=== PATIENT | female | born 1965 | race Caucasian/White ===

== ENCOUNTER 2017-03-26 16:38 | Inpatient (IN) | payer MEDICAID ==
[~2017-03-26] VITALS: Ht 142.2 cm; Wt 76.7 kg
[2017-03-26 17:42] VITALS: BP 144/65
--- NOTE | 2017-03-26 18:57 | NUR ---
Patient to bed 05.
--- NOTE | 2017-03-26 19:10 | NUR ---
PATIENT PRESENTS TO ED WITH DAUGHTER . PT ROMANIAN SPEAKING, TRANSLATED BY DAUGHTER, PT STATES LEFT LEG SWOLLEN AND PAIN FOR ONE DAY, HX OF CARDIAC PROBLEM, AND PLATELET LOW. NKA, DENIES N/V/D; SKIN IS PINK/WARM/DRY; AAOX4, LUNGS CLEAR BL; HR EVEN AND REGULAR; DENIES ANY FEVER, CP, SOB, OR COUGH AT THIS TIME; PATIENT STATES PAIN OF 9/10 AT THIS TIME; VSS; PATIENT POSITIONED FOR COMFORT; HOB ELEVATED; BEDRAILS UP X2; BED DOWN. ER MD MADE AWARE OF PT STATUS.
[2017-03-26] MEDS ORDERED: IBUPROFEN 800 MG TAB PO ONE (19:20)
[2017-03-26] MEDS ORDERED: ENOXAPARIN 80 MG/0.8 ML SYR SUBQ ONE (20:30)
[2017-03-26] MEDS ORDERED: NACL 0.9% 1,000 ML IV ONE (20:35)
[2017-03-26 20:45] LABS: ANION GAP 13.8 (8-16); CALCIUM 9.2 mg/dL (8.5-10.1); CARBON DIOXIDE 27.3 mmol/L (21-32); CREATININE 0.7 mg/dL (0.6-1.3); POTASSIUM 4.1 mmol/L (3.5-5.1)
[2017-03-26 20:47] LABS: INR 1.1 (0.8-1.2); PARTIAL THROMBOPLASTIN TIME 21.1 secs (22-35.6); PROTHROMBIN TIME 10.7 secs (10.8-13.4)
[2017-03-26 20:51] LABS: ALBUMIN 4.1 g/dL (3.4-5.0); TOTAL BILIRUBIN 0.3 mg/dL (0.0-1.0); TOTAL PROTEIN, SERUM 8.8 g/dL (6.4-8.2)
[2017-03-26 20:53] LABS: BASOPHILS % (AUTO) 0.2 % (0.0-2.0); EOSINOPHILS # (AUTO) 0.1 K/uL (0-0.4); HEMATOCRIT 26.6 % (36-48); LYMPHOCYTES # (AUTO) 1.1 K/uL (2.5-16.5); MEAN CORPUSCULAR HEMOGLOBIN 17 pg (27-31); MEAN CORPUSCULAR HGB CONC 29 g/dL (33-37); MEAN CORPUSCULAR VOLUME 58 fL (80-94); MONOCYTES # (AUTO) 0.7 K/uL (0.8-1.0); MONOCYTES % (AUTO) 5.4 % (1.7-9.3); NEUTROPHILS # (AUTO) 10.7 K/uL (1.8-7.7); NEUTROPHILS % (AUTO) 84.4 % (42.2-75.2); PLATELET COUNT (AUTO) 358 K/uL (140-450); RED BLOOD CELL COUNT(AUTO) 4.59 MIL/uL (4.20-5.40); RED CELL DISTRIBUTION WIDTH 18.4 % (11.6-13.7); WHITE BLOOD COUNT (AUTO) 12.6 K/uL (4.8-10.8)
[2017-03-26 20:54] LABS: HEMOGLOBIN 7.8 g/dL (12.0-16.0)
--- NOTE | 2017-03-26 21:46 | NUR ---
REPORT GIVEN TO TELE NURSE, WILL TRANSFER PATIENT TO ROOM 106A.
[2017-03-26] MEDS ORDERED: LOVENOX 1MG/KG Q12H SUBQ SCH (22:00)
[2017-03-26] MEDS ORDERED: LORazepam 2 MG/ML VIAL IVP PRN (22:00)
[2017-03-26] MEDS ORDERED: HYDROcodone/APAP 5/325 MG 1 TAB TAB PO PRN (22:00)
[2017-03-26] MEDS ORDERED: ONDANSETRON 4 MG/2 ML VIAL IVP PRN (22:00)
[2017-03-26] MEDS ORDERED: ACETAMINOPHEN 325 MG TAB PO PRN (22:00)
--- NOTE | 2017-03-26 22:06 | NUR ---
Patient will be admitted to care of dr edwards. Admited to TELE. Will go to room 106 a. Belongings list completed.
[2017-03-26 22:15] VITALS: BP 118/72
--- NOTE | 2017-03-26 22:15 | NUR ---
Admitted from ER, with chief complaint of LLE PAIN/SWELLING, DX LLE DVT. PT'S DAUGHTER AT BEDSIDE. 51 y/o, Female, Cooperative, AOX4, TONGAN SPEAKING, BUT ABLE TO UNDERSTAND AND SPEAK LITTLE BOLIVIAN. DAUGHTER AT BEDSIDE TO HELP COMMUNICATE. PT ABLE TO VERBALIZE NEEDS. PT RESTING IN BED, DENIES CHEST PAIN, SOB OR S/S OF ACUTE DISTRESS. RECOVERY MANAGER IN PLACE. LEFT LEG SWELLING AND SLIGHT REDNESS ON CALF NOTED. PT C/O DULL, CONSTANT PAIN, DENIES PAIN MED AT THIS TIME. IV ACCESS ASYMPTOMATIC, PATENT AND INTACT. REMAINING IVF FROM ER INFUSING WELL. DISCUSSED AND REVIEWED PLAN OF CARE WITH PT. PT AND PT'S DAUGHTER VERBALIZED UNDERSTANDING. oriented to call light, bed, phone,television, bathroom, smoking policy, visiting hours, procedures, ID bracelet on. Belongings list checked. SAFETY MEASURES ENSURED. CALL LIGHT WITHIN REACH. WILL CONTINUE TO MONITOR.
[2017-03-26 22:39] LABS: CREATINE KINASE MB 0.3 ng/mL (0-3.6)
[2017-03-27] VITALS: BP 105/66
--- NOTE | 2017-03-27 00:15 | NUR ---
PT RESTING COMFORTABLY. PT DENIES CHEST PAIN, SOB OR S/S OF ACUTE DISTRESS. CONDITION STABLE. ALL NEEDS MET. SAFETY MEASURES ENSURED. CALL LIGHT WITHIN REACH. WILL CONTINUE TO MONITOR.
[2017-03-27 04:00] VITALS: BP 102/63
--- NOTE | 2017-03-27 04:15 | NUR ---
PT SLEEPING. NO S/S OF ACUTE DISTRESS. CONDITION STABLE. ALL NEEDS MET. SAFETY MEASURES ENSURED. CALL LIGHT WITHIN REACH. WILL CONTINUE TO MONITOR.
[2017-03-27 06:34] LABS: BASOPHILS # (AUTO) 0.1 K/uL (0.00-0.22); EOSINOPHILS # (AUTO) 0.2 K/uL (0-0.4); LYMPHOCYTES # (AUTO) 1.2 K/uL (2.5-16.5); PLATELET COUNT (AUTO) 284 K/uL (140-450)
[2017-03-27 06:36] LABS: EOSINOPHILS % (AUTO) 2.7 % (0.0-4.0); HEMATOCRIT 22.2 % (36-48); LYMPHOCYTES % (AUTO) 17.5 % (20.5-51.1); MEAN CORPUSCULAR HEMOGLOBIN 17 pg (27-31); MEAN CORPUSCULAR HGB CONC 29 g/dL (33-37); MEAN CORPUSCULAR VOLUME 59 fL (80-94); MONOCYTES # (AUTO) 0.5 K/uL (0.8-1.0); MONOCYTES % (AUTO) 7.1 % (1.7-9.3); NEUTROPHILS # (AUTO) 5.1 K/uL (1.8-7.7); NEUTROPHILS % (AUTO) 70.7 % (42.2-75.2); RED BLOOD CELL COUNT(AUTO) 3.79 MIL/uL (4.20-5.40); RED CELL DISTRIBUTION WIDTH 18.4 % (11.6-13.7); WHITE BLOOD COUNT (AUTO) 7.1 K/uL (4.8-10.8)
[2017-03-27 06:37] LABS: ANION GAP 12.5 (8-16); CALCIUM 8.1 mg/dL (8.5-10.1); CARBON DIOXIDE 25.8 mmol/L (21-32); CREATININE 0.6 mg/dL (0.6-1.3); POTASSIUM 4.3 mmol/L (3.5-5.1)
[2017-03-27 06:43] LABS: MAGNESIUM 2.1 mg/dL (1.8-2.4); PHOSPHORUS 3.8 mg/dL (2.5-4.9)
[2017-03-27 06:56] LABS: CREATINE KINASE MB 0.2 ng/mL (0-3.6)
[2017-03-27 06:57] LABS: HEMOGLOBIN 6.4 g/dL (12.0-16.0)
--- NOTE | 2017-03-27 07:23 | NUR ---
CALLED Umair ALEGRIA MADE AWARE OF HGB 6.4 AND HCT 22.2; ORDERS RECEIVED FOR PRBC 2 UNITS STAT. ORDERS PUT IN, ENDORSED TO AM NURSE.
[2017-03-27] MEDS ORDERED: LOVENOX 1MG/KG Q12H SUBQ SCH (07:25)
--- NOTE | 2017-03-27 07:25 | NUR ---
RECEIVED PATIENT REPORT AT BEDSIDE. PATIENT'S DAUGHTER PRESENT IN THE ROOM. PATIENT AWAKE, ALERT AND ORIENTED. NO S/S OF DISTRESS NOTED. SWELLING NOTED TO THE LEFT LEG. PATIENT DENIES PAIN AT THIS TIME. PATIENT STATES SHE ONLY FEELS PAIN WHEN WALKING. NO SOB. PATIENT ON ROOM AIR. PATIENT ON TELE MONITORING. BED LOWERED WITH CALL LIGHT WITHIN REACH. WILL CONTINUE TO MONITOR
--- NOTE | 2017-03-27 07:25 | NUR ---
ENDORSED PLAN OF CARE TO AM NURSE.
[2017-03-27 07:26] LABS: ANISOCYTOSIS 1+; HYPOCHROMASIA 1+; POIKILOCYTOSIS 1+
[2017-03-27 07:27] LABS: OVALOCYTES 1+
--- NOTE | 2017-03-27 07:58 | NUR ---
SPOKE WITH DR Umair COLLINS AND INFORMED HIM THAT PATIENT REFUSES TO HAVE BLOOD TRANSFUSION AND OPTS TO HAVE IRON SUPPLEMENTS. ORDERS TO ADMINISTER IV IRON
[2017-03-27 08:00] VITALS: BP 117/67
[2017-03-27] MEDS: FERRIC GLUCONATE 125 MG in NACL 0.9% 100 ML IV SCH (09:37)
[2017-03-27] MEDS: ENOXAPARIN 80 MG/0.8 ML SYR SUBQ SCH ×2 (09:46→22:29)
[2017-03-27 09:58] LABS: INR 1.1 (0.8-1.2)
--- NOTE | 2017-03-27 10:09 | NUR ---
PATIENT HAS BEEN SCREENED AND CATEGORIZED LOW NUTRITION RISK. PATIENT WILL BE SEEN WITHIN 7 DAYS OF ADMISSION. 04/02/[address]
[2017-03-27 12:00] VITALS: BP 119/72
[2017-03-27 12:59] LABS: CREATINE KINASE MB 0.1 ng/mL (0-3.6)
--- NOTE | 2017-03-27 14:28 | NUR ---
PATIENT SEEN BY DR Andi COLLINS
[2017-03-27 16:00] VITALS: BP 131/77
[2017-03-27] MEDS ORDERED: WARFARIN 5 MG, WARFARIN 2.5 MG PO SCH ×2 (17:00)
--- NOTE | 2017-03-27 18:31 | NUR ---
PATIENT RESTING IN BED COMFORTABLY. NO S/S OF DISTRESS NOTED
--- NOTE | 2017-03-27 19:25 | NUR ---
PATIENT REPORT GIVEN AT BEDSIDE. PATIENT ENDORSED IN STABLE CONDITION
--- NOTE | 2017-03-27 19:30 | NUR ---
RECEIVED PT FROM IVAN CHAPPELL PT NEPALI SPEAKER AAOX4 ON TELEMETRY ST LEFT LE EDEMATOUS AND DX DVT, HL PATENT ON RT AC PT USING BSC VOIDING WELL INITIAL ASSESSMENT DONE
[2017-03-27 20:00] VITALS: BP 121/66
--- NOTE | 2017-03-27 22:00 | NUR ---
PT RESTING ON BED DENIES ANY DISCOMFORT AT THIS TIME ON TELEMETRY ST
[2017-03-28] VITALS: BP 122/66
--- NOTE | 2017-03-28 01:57 | NUR ---
PT SLEEPING WELL NOT DISTRESS NOTED AT THIS TIME ON TELEMETRY ST
[2017-03-28 04:00] VITALS: BP 113/62
--- NOTE | 2017-03-28 04:57 | NUR ---
SPONGE BATH GIVEN , LINEN CHANGED , PT HAS HER MENSTRUAL PERIOD PAD CHANGED DENIES ANY PAIN
[2017-03-28 06:28] LABS: INR 1.1 (0.8-1.2); PROTHROMBIN TIME 10.7 secs (10.8-13.4)
[2017-03-28 06:34] LABS: ANION GAP 11.9 (8-16); CALCIUM 8.1 mg/dL (8.5-10.1); CREATININE 0.6 mg/dL (0.6-1.3); EOSINOPHILS # (AUTO) 0.2 K/uL (0-0.4); MEAN CORPUSCULAR HEMOGLOBIN 17 pg (27-31); POTASSIUM 3.9 mmol/L (3.5-5.1)
[2017-03-28 06:38] LABS: BASOPHILS # (AUTO) 0.2 K/uL (0.00-0.22); BASOPHILS % (AUTO) 2.4 % (0.0-2.0); EOSINOPHILS % (AUTO) 2.4 % (0.0-4.0); HEMATOCRIT 24.1 % (36-48); LYMPHOCYTES # (AUTO) 1.4 K/uL (2.5-16.5); LYMPHOCYTES % (AUTO) 16.2 % (20.5-51.1); MEAN CORPUSCULAR HGB CONC 29 g/dL (33-37); MEAN CORPUSCULAR VOLUME 59 fL (80-94); MONOCYTES # (AUTO) 0.5 K/uL (0.8-1.0); MONOCYTES % (AUTO) 6.1 % (1.7-9.3); NEUTROPHILS # (AUTO) 6.3 K/uL (1.8-7.7); NEUTROPHILS % (AUTO) 72.9 % (42.2-75.2); PLATELET COUNT (AUTO) 314 K/uL (140-450); RED BLOOD CELL COUNT(AUTO) 4.06 MIL/uL (4.20-5.40); RED CELL DISTRIBUTION WIDTH 18.5 % (11.6-13.7)
--- NOTE | 2017-03-28 06:38 | NUR ---
PT HAS HER MENSTRUAL PERIODS, VOIDING WELL USING BSC DENIES ANY PAIN ON TELEMETRY SR
--- NOTE | 2017-03-28 07:00 | NUR ---
RECEIVED REPORT FROM PM SHIFT RN AT BEDSIDE. PT IS AWAKE AND ALERT, ABLE TO MAKE NEEDS KNOWN. BREATHING EVEN & UNLABORED. PT DENIED ANY CHEST PAIN, SOB, OR DISCOMFORT AT THIS TIME. RIGHT AC #20G IV ACCESS INTACT AND PATENT. RIGHT LOWER LEG SWELLING NOTED. BED IN LOW POSITION. SAFETY MEASURES MAINTAINED. CALL LIGHT WITHIN REACH. WILL CONTINUE TO MONITOR. Addendum: 03/28/17 at 1035 by Tolu Hill RN LEFT LOWER LEG SWELLING NOTED, NOT RIGHT LOWER LEG. CHARTED BY MISTAKE.
[2017-03-28 07:46] LABS: ANISOCYTOSIS 1+; HEMOGLOBIN 6.9 g/dL (12.0-16.0); HYPOCHROMASIA 1+; POIKILOCYTOSIS 1+; WHITE BLOOD COUNT (AUTO) 8.6 K/uL (4.8-10.8)
[2017-03-28 07:47] LABS: OVALOCYTES 1+
[2017-03-28 08:00] VITALS: BP 112/68
[2017-03-28] MEDS: FERRIC GLUCONATE 125 MG in NACL 0.9% 100 ML IV SCH (09:08)
[2017-03-28] MEDS: ENOXAPARIN 80 MG/0.8 ML SYR SUBQ SCH ×2 (09:11→22:16)
--- NOTE | 2017-03-28 09:15 | NUR ---
SCHEDULED MED GIVEN ORDERED AND TOLERATED WELL BY PT. CALL LIGHT WITHIN REACH. WILL CONTINUE TO MONITOR.
[2017-03-28] MEDS: FERROUS SULFATE 325 MG TABEC PO SCH ×2 (11:44→16:56)
[2017-03-28 12:00] VITALS: BP 112/66
--- NOTE | 2017-03-28 12:00 | NUR ---
ROUNDED ON PT. V/S STABLE. AFEBRILE. NO ACUTE DISTRESS NOTED. DAUGHTER PRESENTED AT BEDSIDE. WILL CONTINUE TO MONITOR.
--- NOTE | 2017-03-28 15:30 | NUR ---
ANSWERED CALL LIGHT. ANOTHER DAUGHTER CAME TO VISIT PT AT THIS TIME. UPDATED TO DAUGHTER WITH PT'S CURRENT CLINICAL STATUS AND ALL QUESTIONS ANSWERED. WILL CONTINUE TO MONITOR.
[2017-03-28 16:00] VITALS: BP 118/66
[2017-03-28] MEDS ORDERED: WARFARIN 5 MG, WARFARIN 2.5 MG PO SCH ×2 (17:00)
--- NOTE | 2017-03-28 19:20 | NUR ---
ENDORSED REPORT TO A OPERATOR RN FOR CONTINUITY OF CARE.
--- NOTE | 2017-03-28 19:25 | NUR ---
RECEIVED FROM AM RN IN BED SITTING UP POSITION IN BED . SEQUENTIALS IN PLACE AND ABLE TO BVERBALIZE NEEDS WELL. NO SOB. DENIES PAIN AT THIS TIME. PT. CARE PLANS FOR THE NIGHT DISCUSSED WITH HER AND ENCOURAGED TO USE CALL LIGHT FOR ANY HELP SHE MAY NEED. IVF SITE INTACT AND NO INFILTRATION TO RAC#20. DX. OF DVT TO LEFT LEG. TELEMETRY MONITORING.
[2017-03-28 20:00] VITALS: BP 110/64
--- NOTE | 2017-03-28 22:11 | NUR ---
SLEEPING AT THIS TIME. TELEMETRY MONITORING. CALL LIGHT WITH IN REACH.
--- NOTE | 2017-03-28 23:06 | NUR ---
SLEEPING. NO COMPLAINTS DONE. DAUGHTER LEFT FOR HOME. CALL LIGHT WITH IN REACH.
[2017-03-29 00:11] VITALS: BP 104/63
--- NOTE | 2017-03-29 03:15 | NUR ---
PT. NEEDS ATTENDED TO. WET WITH URINE. RURAL ELECTRIFICATION ENGINEER CHANGED PT. KEPT DRY AND COMFORTABLE. ABLE TO VERBALIZE SIMPLE NEEDS. ENCOURAGED TO GO BACK TO SLEEP. ON TELEMETRY MONITORING.
[2017-03-29 05:31] VITALS: BP 110/64
[2017-03-29 06:24] LABS: ANION GAP 10.7 (8-16); CALCIUM 8.3 mg/dL (8.5-10.1); CARBON DIOXIDE 27.2 mmol/L (21-32); CREATININE 0.6 mg/dL (0.6-1.3); EOSINOPHILS # (AUTO) 0.3 K/uL (0-0.4); HEMATOCRIT 24.2 % (36-48); MEAN CORPUSCULAR HEMOGLOBIN 18 pg (27-31); MONOCYTES # (AUTO) 0.6 K/uL (0.8-1.0); POTASSIUM 3.9 mmol/L (3.5-5.1)
[2017-03-29 06:26] LABS: BASOPHILS # (AUTO) 0.2 K/uL (0.00-0.22); BASOPHILS % (AUTO) 1.7 % (0.0-2.0); EOSINOPHILS % (AUTO) 3.3 % (0.0-4.0); LYMPHOCYTES # (AUTO) 2.2 K/uL (2.5-16.5); MEAN CORPUSCULAR HGB CONC 29 g/dL (33-37); MEAN CORPUSCULAR VOLUME 61 fL (80-94); MONOCYTES % (AUTO) 6.2 % (1.7-9.3); NEUTROPHILS # (AUTO) 6.5 K/uL (1.8-7.7); NEUTROPHILS % (AUTO) 66.8 % (42.2-75.2); PLATELET COUNT (AUTO) 346 K/uL (140-450); RED BLOOD CELL COUNT(AUTO) 4.01 MIL/uL (4.20-5.40); RED CELL DISTRIBUTION WIDTH 18.8 % (11.6-13.7)
[2017-03-29 06:32] LABS: INR 1.2 (0.8-1.2); PROTHROMBIN TIME 12.4 secs (10.8-13.4)
--- NOTE | 2017-03-29 06:45 | NUR ---
SLEPT WELL THIS SHIFT. NO COMPLAINTS OF PAIN DONE. TURNS SELF. CALL LIGHT WITH IN REACH AT ALL TIMES. VERBALIZES SIMPLE NEEDS WELL IN MALDIVIAN. SEQUENTIALS IN PLACE.
[2017-03-29 07:10] LABS: WHITE BLOOD COUNT (AUTO) 9.8 K/uL (4.8-10.8)
[2017-03-29 07:12] LABS: ANISOCYTOSIS 1+; HYPOCHROMASIA 1+; POIKILOCYTOSIS 1+
--- NOTE | 2017-03-29 07:35 | NUR ---
ENDORSED TO THE NEXT RN F OR CONTINUITY OF CARE. AWAKE AND ALERT. VERBALIZES WELL.
--- NOTE | 2017-03-29 07:36 | NUR ---
RECEIVED BEDSIDE REPORT FROM LABOR CONTRACTOR NURSE. PT AWAKE AND ALERT, NO SIGNS OF ACUTE DISTRESS. BOWEL SOUNDS ACTIVE IN ALL 4 QUADRANTS, PATIENT CONTINENT TO BOWEL AND BLADDER. AMBULATORY WITH BRP. SKIN INTACT. PATIENT DENIES PAIN AT THIS TIME. IV PATENT AND ASYMPTOMATIC. RE-ORIENTED PATIENT TO HOSPITAL AND TO UNIT, PT VERBALIZED UNDERSTANDING. BED IN LOW POSITION WITH BILATERAL HALF SIDE RAILS UP, CALL LIGHT WITHIN REACH, SAFETY CHECKS IN PLACE.
[2017-03-29 08:00] VITALS: BP 111/57
[2017-03-29] MEDS: FERROUS SULFATE 325 MG TABEC PO SCH ×3 (08:29→16:20)
[2017-03-29] MEDS: ENOXAPARIN 80 MG/0.8 ML SYR SUBQ SCH ×2 (08:30→20:24)
[2017-03-29] MEDS: FERRIC GLUCONATE 125 MG in NACL 0.9% 100 ML IV SCH (08:31)
--- NOTE | 2017-03-29 09:30 | NUR ---
PT RESTING COMFORTABLY IN BED, NO COMPLAINT OF PAIN AT THIS TIME. BED IN LOW POSITION WITH BILATERAL HALF SIDE RAILS UP, CALL LIGHT WITHIN REACH, SAFETY CHECKS IN PLACE. WILL CONTINUE TO MONITOR.
[2017-03-29 12:00] VITALS: BP 101/62
--- NOTE | 2017-03-29 12:15 | NUR ---
PT SITTING UPRIGHT IN BED, NO COMPLAINT OF PAIN AT THIS TIME. VITALS STABLE, SAFETY CHECKS IN PLACE. WILL CONTINUE TO MONITOR.
--- NOTE | 2017-03-29 14:00 | NUR ---
PT RESTING COMFORTABLY IN BED, NO SIGNS OF ACUTE DISTRESS. BED IN LOW POSITION WITH BILATERAL HALF SIDE RAILS UP, CALL LIGHT WITHIN REACH. WILL CONTINUE TO MONITOR.
--- NOTE | 2017-03-29 14:50 | NUR ---
PATIENT COMPLAINT OF PAIN AT IV SITE. NO REDNESS OR COLD AREAS AROUND SITE HOWEVER MILD SWELLING. DISCONTINUED IV AND STARTED NEW IV IN LEFT FOREARM, 22 G. IV PATENT AND ASYMPTOMATIC. WILL CONTINUE TO MONITOR.
[2017-03-29 16:00] VITALS: BP 117/67
[2017-03-29] MEDS: WARFARIN 5 MG TAB PO SCH (16:18)
--- NOTE | 2017-03-29 16:30 | NUR ---
PATIENT WANTED TO USE THE RESTROOM INSTEAD OF THE BEDSIDE COMMODE. PT UNABLE TO MAKE IT TO THE BATHROOM DUE TO PAIN FROM WALKING, USED WHEELCHAIR INSTEAD. WILL CONTINUE TO MONITOR.
--- NOTE | 2017-03-29 18:20 | NUR ---
PT RESTING COMFORTABLY IN BED, NO SIGNS OF ACUTE DISTRESS. SAFETY CHECKS IN PLACE, WILL CONTINUE TO MONITOR.
[2017-03-29 19:30] VITALS: BP 113/64
--- NOTE | 2017-03-29 19:30 | NUR ---
RECEIVED FROM AM RN IN BED AWAKE AND ALERT. LEBANESE SPEAKING . CALL LIGHT WITH IN REACH. TELEMETRY [id number].
--- NOTE | 2017-03-29 19:30 | NUR ---
PT AWAKE AND ALERT, NO SIGNS OF ACUTE DISTRESS. ENDORSED TO REMEDIOS RN, FOR CONTINUITY OF CARE.
--- NOTE | 2017-03-29 22:30 | NUR ---
STILL AWAKE AT THIS TIME AND ON THE PHONE TALKING T O FAMILY MEMBERS. NO SOB. DENIES ANY PAIN AT THIS TIME. TELEMETRY MONITORING . ABLE TO USE CALL LIGHT FOR HELP. AFEBRILE.
[2017-03-30 00:31] VITALS: BP 114/68
--- NOTE | 2017-03-30 00:37 | NUR ---
PT. A/O X 4. VERBALIZES WELL IN LAO.SLEEPING AT THIS TIME. NO RESTLESSNESS NOTED. CALL LIGHT AT BEDSIDE WITH IN REACH. USES BEDSIDE COMMODE FOR PERSONAL HYGIENE.
[2017-03-30 04:17] VITALS: BP 110/66
--- NOTE | 2017-03-30 04:30 | NUR ---
SLEEPING WELL THIS SHIFT. NO COMPLAINTS DONE. AFEBRILE. VERBALIZES NEEDS WELL. TELEMETRY MONITORING.
[2017-03-30 06:25] LABS: ANION GAP 10.4 (8-16); CALCIUM 8.3 mg/dL (8.5-10.1); CARBON DIOXIDE 27.8 mmol/L (21-32); CREATININE 0.6 mg/dL (0.6-1.3); POTASSIUM 4.2 mmol/L (3.5-5.1)
[2017-03-30 06:29] LABS: INR 1.7 (0.8-1.2); PROTHROMBIN TIME 16.7 secs (10.8-13.4)
[2017-03-30 06:44] LABS: BASOPHILS # (AUTO) 0.1 K/uL (0.00-0.22); BASOPHILS % (AUTO) 0.9 % (0.0-2.0); EOSINOPHILS # (AUTO) 0.4 K/uL (0-0.4); EOSINOPHILS % (AUTO) 3.2 % (0.0-4.0); HEMATOCRIT 24.8 % (36-48); HEMOGLOBIN 7.2 g/dL (12.0-16.0); LYMPHOCYTES # (AUTO) 1.6 K/uL (2.5-16.5); LYMPHOCYTES % (AUTO) 12.6 % (20.5-51.1); MEAN CORPUSCULAR HEMOGLOBIN 18 pg (27-31); MEAN CORPUSCULAR HGB CONC 29 g/dL (33-37); MEAN CORPUSCULAR VOLUME 62 fL (80-94); MONOCYTES # (AUTO) 0.7 K/uL (0.8-1.0); MONOCYTES % (AUTO) 5.5 % (1.7-9.3); NEUTROPHILS % (AUTO) 77.8 % (42.2-75.2); PLATELET COUNT (AUTO) 359 K/uL (140-450); RED CELL DISTRIBUTION WIDTH 19.3 % (11.6-13.7)
[2017-03-30 07:06] LABS: WHITE BLOOD COUNT (AUTO) 12.8 K/uL (4.8-10.8)
[2017-03-30 07:07] LABS: ANISOCYTOSIS 1+; HYPOCHROMASIA 1+; OVALOCYTES 1+; POIKILOCYTOSIS 1+
--- NOTE | 2017-03-30 07:15 | NUR ---
ENDORSED TO THE NEXT RN FOR CONTINUITY OF CARE. SLEEPING. WAKES UP EASILY WHEN CALLED BY NAME. NO COMPLAINTS DONE THIS SHIFT. USES CALL LIGHT FOR HELP. VERBALIZES SIMPLE NEEDS WELL IN PERSIAN.
--- NOTE | 2017-03-30 07:16 | NUR ---
PT AWAKE AND ALERT, NO SIGNS OF ACUTE DISTRESS. BOWEL SOUNDS ACTIVE IN ALL 4 QUADRANTS, BOWEL AND BLADDER CONTINENCE. SKIN INTACT. AMBULATORY WITH ASSIST WITH BEDSIDE COMMODE. IV PATENT AND ASYMPTOMATIC. PATIENT HAS PAIN 3/10 DOESN'T WANT PAIN MEDICATION AT THIS TIME. RE-ORIENTED TO HOSPITAL AND TO UNIT, PT VERBALIZED UNDERSTANDING. BED IN LOW POSITION WITH BILATERAL HALF SIDE RAILS UP, CALL LIGHT WITHIN REACH. WILL CONTINUE TO MONITOR.
[2017-03-30 08:00] VITALS: BP 103/59
[2017-03-30] MEDS: FERRIC GLUCONATE 125 MG in NACL 0.9% 100 ML IV SCH (09:24)
[2017-03-30] MEDS: FERROUS SULFATE 325 MG TABEC PO SCH ×3 (09:25→16:37)
[2017-03-30] MEDS: ENOXAPARIN 80 MG/0.8 ML SYR SUBQ SCH ×2 (09:26→21:58)
--- NOTE | 2017-03-30 09:45 | NUR ---
PATIENT COMPLAINING OF PAIN 7/10 IN UPPER RIGHT EXTREMITY. AREA MILD SWELLING FROM PREVIOUS IV. PATIENT DOES NOT WANT PAIN MEDICATION AT THIS TIME. RE-POSITIONED PATIENT. WILL CONTINUE TO MONITOR.
[2017-03-30 12:00] VITALS: BP 106/65
--- NOTE | 2017-03-30 12:13 | NUR ---
PATIENT SITTING UPRIGHT EATING LUNCH, NO SIGNS OF ACUTE DISTRESS. BED IN LOW POSITION WITH BILATERAL HALF SIDE RAILS UP, CALL LIGHT WITHIN REACH. WILL CONTINUE TO MONITOR.
--- NOTE | 2017-03-30 13:10 | NUR ---
RECEIVED NEW ORDERS FROM DR COLLINS FOR LABS AND CULTURES, NOTED, WILL CARRY OUT.
--- NOTE | 2017-03-30 15:55 | NUR ---
PATIENT COMPLAINING OF PAIN 7/10 IN UPPER RIGHT EXTREMITY AND LOWER LEFT EXTREMITY. DOESN'T WANT PAIN MEDICATION AT THIS TIME. REPOSITIONED AND APPLIED ICE PACK. WILL CONTINUE TO MONITOR.
[2017-03-30 16:00] VITALS: BP 112/70
[2017-03-30] MEDS: WARFARIN 5 MG TAB PO SCH (16:38)
--- NOTE | 2017-03-30 17:20 | NUR ---
PATIENT TELE MONITOR NOT WORKING, REPLACED TELE MONITOR AND CHECKED VITAL SIGNS. BLOOD PRESSURE 107/74, HEART RATE 117, OXYGEN SATURATION 96%, RESPIRATIONS 18, TEMPERATURE 98.1 AND PAIN 5/10 IN LLE AND RUE. PATIENT STATED THAT THE ICE PACK IS HELPING TO RELIEVE PAIN. NO SIGNS OF ACUTE DISTRESS. BED IN LOW POSITION WITH BILATERAL HALF SIDE RAILS UP, CALL LIGHT WITHIN REACH. WILL CONTINUE TO MONITOR.
--- NOTE | 2017-03-30 19:10 | NUR ---
PT AWAKE AND ALERT, NO SIGNS OF ACUTE DISTRESS. ENDORSED TO TA YOUSIF FOR CONTINUITY OF CARE.
--- NOTE | 2017-03-30 19:30 | NUR ---
RECEIVED REPORT FROM DAY RN AT BEDSIDE, PATIENT IS AAOX4 ON ROOM AIR, NO SOB OR SIGN OF DISTRESS AT THIS TIME, IV TO LEFT FA PATENT AND INTACT, SKIN INTACT WITH RIGHT UPPER ARM SWELLING FROM PREVIOUS INFILTRATED IV, ARM ELEVATED ON PILLOWS, ICE PACK APPLIED, SWELLING AND WARMTH TO LEFT LOWER EXTREMITY, PATIENT C/O PAIN BUT DOES NOT WANT ANY PAIN MEDICATIONS. DISCUSSED PLAN OF CARE WITH PATIENT, PT VERBALIZED UNDERSTANDING, CALL LIGHT WITHIN REACH. WILL CONTINUE TO MONITOR.
[2017-03-30 20:00] VITALS: BP 95/58
--- NOTE | 2017-03-30 22:00 | NUR ---
PM MEDICATION ADMINISTERED, PATIENT TOLERATED WELL, CALL LIGHT WITHIN REACH. WILL CONTINUE TO MONITOR.
[2017-03-31] VITALS: BP 109/58
--- NOTE | 2017-03-31 | NUR ---
VITAL SIGNS STABLE, NO SOB OR SIGN OF DISTRESS, CALL LIGHT WITHIN REACH. WILL CONTINUE TO MONITOR.
--- NOTE | 2017-03-31 02:26 | NUR ---
PT SLEEPING, NO SOB OR SIGN OF DISTRESS, CALL LIGHT WITHIN REACH. WILL CONTINUE TO MONITOR.
[2017-03-31 04:00] VITALS: BP 108/58
--- NOTE | 2017-03-31 04:00 | NUR ---
VITAL SIGNS STABLE, NO SOB OR SIGN OF DISTRESS AT THIS TIME, CALL LIGHT WITHIN REACH. WILL CONTINUE TO MONITOR
[2017-03-31 07:03] LABS: ANION GAP 9.5 (8-16); CALCIUM 8.7 mg/dL (8.5-10.1); CARBON DIOXIDE 30.7 mmol/L (21-32); CREATININE 0.6 mg/dL (0.6-1.3); INR 2.3 (0.8-1.2); POTASSIUM 4.2 mmol/L (3.5-5.1); PROTHROMBIN TIME 22.8 secs (10.8-13.4)
[2017-03-31 07:15] LABS: BASOPHILS # (AUTO) 0.2 K/uL (0.00-0.22); BASOPHILS % (AUTO) 1.6 % (0.0-2.0); EOSINOPHILS # (AUTO) 0.2 K/uL (0-0.4); HEMATOCRIT 26.5 % (36-48); HEMOGLOBIN 7.8 g/dL (12.0-16.0); LYMPHOCYTES # (AUTO) 1.2 K/uL (2.5-16.5); LYMPHOCYTES % (AUTO) 11.4 % (20.5-51.1); MEAN CORPUSCULAR HEMOGLOBIN 19 pg (27-31); MEAN CORPUSCULAR HGB CONC 29 g/dL (33-37); MEAN CORPUSCULAR VOLUME 63 fL (80-94); MONOCYTES # (AUTO) 0.8 K/uL (0.8-1.0); MONOCYTES % (AUTO) 7.3 % (1.7-9.3); NEUTROPHILS # (AUTO) 8.2 K/uL (1.8-7.7); NEUTROPHILS % (AUTO) 77.7 % (42.2-75.2); PLATELET COUNT (AUTO) 375 K/uL (140-450); WHITE BLOOD COUNT (AUTO) 10.6 K/uL (4.8-10.8)
--- NOTE | 2017-03-31 07:25 | NUR ---
ENDORSED PATIENT TO DAY RN AT BEDSIDE, PATIENT IN STABLE CONDITION
--- NOTE | 2017-03-31 07:25 | NUR ---
RECEIVED REPORT FROM NIGHT NURSE, PT IS AAOX4 YORUBA SPEAKING, ON ROOM AIR, IV TO LEFT FA 22G SALINE LOCK, SKIN INTACT LEFT LEG SWOLLEN, RIGHT UPPER ARM SWOLLEN, INITIAL ASSESSMENT COMPLETED, REVIEWED PLAN OF CARE WITH PT, PT VERBALIZED UNDERSTANDING,ALL SAFETY PRECAUTIONS MET, ALL NEEDS MET, WILL CONTINUE TO MONITOR.
[2017-03-31 07:44] VITALS: BP 102/59
[2017-03-31 08:11] LABS: ANISOCYTOSIS 1+; HYPOCHROMASIA 1+; POIKILOCYTOSIS 1+
[2017-03-31 08:12] LABS: OVALOCYTES 1+; STOMATOCYTES 1+
[2017-03-31] MEDS: FERROUS SULFATE 325 MG TABEC PO SCH ×2 (08:43→11:43)
[2017-03-31] MEDS: ENOXAPARIN 80 MG/0.8 ML SYR SUBQ SCH (08:46)
[2017-03-31] MEDS: FERRIC GLUCONATE 125 MG in NACL 0.9% 100 ML IV SCH (09:19)
--- NOTE | 2017-03-31 09:19 | NUR ---
DUE MEDICATIONS GIVEN, ALL NEEDS MET. CALL LIGHT WITHIN REACH.
--- NOTE | 2017-03-31 11:44 | NUR ---
DUE MEDICATION GIVEN, PT CURRENTLY RESTING IN BED. NO S/S OF DISTRESS NOTED. ALL NEEDS MET. WILL CONTINUE TO MONITOR
[2017-03-31 12:00] VITALS: BP 105/64
[2017-03-31] MEDS ORDERED: WARF2.5T1 PO ×2 (13:09→13:13)
[2017-03-31] MEDS ORDERED: ACET-1182 PO (13:09)
[2017-03-31] MEDS ORDERED: FERR-18 PO (13:09)
--- NOTE | 2017-03-31 13:45 | NUR ---
CHECKED IN ON PT, ALL NEEDS MET. CALL LIGHT WITHIN REACH. WILL CONTINUE TO MONITOR.
--- NOTE | 2017-03-31 15:30 | NUR ---
PT SIGNED ALL DISCHARGE PAPERWORK, PRESCRIPTIONS GIVEN, FOLLOW UP INFORMATION GIVEN, DISCHARGE EDUCATION GIVEN, PT VERBALIZED UNDERSTANDING, ALL PERSONAL BELONGING WITH PT, IV REMOVED TIP INTACT. DAUGHTER IN TO FREEZING MACHINE OPERATOR PT.
--- NOTE | 2017-03-31 15:40 | NUR ---
PT WAS WHEELED OUT TO FRONT LOBBY IN STABLE CONDITION.
[2017-03-31] MEDS ORDERED: WARFARIN 2.5 MG TAB PO SCH (17:00)
== END 2017-03-31 15:50 | disposition home or self-care (01) | DRG 197 ==
LOC: MED 16:38 → MTU 22:00
PROVIDERS: ADMIT Preventive Medicine Preventive Medicine/Occupational Environmental Medicine; ATTEND Preventive Medicine Preventive Medicine/Occupational Environmental Medicine
DX: I82.492 Acute embolism and thrombosis of other specified deep vein of left lower extremity (principal); E83.51 Hypocalcemia; D64.9 Anemia, unspecified; R73.9 Hyperglycemia, unspecified; M25.562 Pain in left knee; E83.52 Hypercalcemia; D72.829 Elevated white blood cell count, unspecified
CPT/HCPCS: 36415; 71010; 80048; 80053; 82550; 82553; 83735; 84100; 84484; 85025; 85610; 85651; 85730; 86140; 86886; 86900; 86901; 86920; 87040; 87081; 87086; 93005; 93971; 96360; 96372; 99285; J1650; J2916; J7030; Q0092

== ENCOUNTER 2017-07-17 10:00 | Emergency (ER) | payer MEDICAID ==
[~2017-07-17] VITALS: Ht 152.4 cm; Wt 70.8 kg
[~2017-07-17 10:00] MED LIST: ACET-1182 PO; FERR-18 PO; WARF2.5T1 PO
[2017-07-17 10:11] VITALS: BP 118/73
--- NOTE | 2017-07-17 10:21 | NUR ---
Patient to bed 8 at this time.
--- NOTE | 2017-07-17 10:25 | NUR ---
51/F BIB DAUGHTER HERE FOR MED REFILL FOR WARFARIN 2.5MG/TAB. DAUGHTER REPORTS HER LAST INR CHECK WAS 1-2 MONTHS AGO. STS RAN OUT YDAY. HX DVT TO LOWER LEFT LOWER DX 4 MONTHS AGO. PT C/O 5/10 "DULL" L CALF PAIN SINCE JANUARY, STS SWELLING HAS GONE DOWN. DENIES ANY SOB, CP, OTHER PAIN OR S/S. NEXT PMD APPT 09/14/17. PT IS AOX4. RR ARE EVEN AND UNLABORED. NAD. VSS. ERMD AWARE OF PT STATUS. PT POSITIONED FOR COMFORT, BED DOWN. WILL CONTINUE TO MONITOR.
[2017-07-17 11:12] LABS: BASOPHILS # (AUTO) 0.1 K/uL (0.00-0.22); BASOPHILS % (AUTO) 1.6 % (0.0-2.0); EOSINOPHILS # (AUTO) 0.1 K/uL (0-0.4); EOSINOPHILS % (AUTO) 2.6 % (0.0-4.0); HEMATOCRIT 25.5 % (36-48); HEMOGLOBIN 7.5 g/dL (12.0-16.0); LYMPHOCYTES # (AUTO) 1.2 K/uL (2.5-16.5); LYMPHOCYTES % (AUTO) 25.1 % (20.5-51.1); MEAN CORPUSCULAR HEMOGLOBIN 18 pg (27-31); MEAN CORPUSCULAR HGB CONC 30 g/dL (33-37); MEAN CORPUSCULAR VOLUME 62 fL (80-94); MONOCYTES # (AUTO) 0.3 K/uL (0.8-1.0); NEUTROPHILS % (AUTO) 63.7 % (42.2-75.2); PLATELET COUNT (AUTO) 393 K/uL (140-450); RED BLOOD CELL COUNT(AUTO) 4.12 MIL/uL (4.20-5.40); RED CELL DISTRIBUTION WIDTH 21.4 % (11.6-13.7); WHITE BLOOD COUNT (AUTO) 4.7 K/uL (4.8-10.8)
[2017-07-17 11:20] LABS: ANION GAP 10.1 (8-16); CREATININE 0.5 mg/dL (0.6-1.3); POTASSIUM 4.1 mmol/L (3.5-5.1)
[2017-07-17 11:40] LABS: PROTHROMBIN TIME 29.7 secs (10.8-13.4)
[2017-07-17 12:29] VITALS: BP 110/71
--- NOTE | 2017-07-17 12:29 | NUR ---
Patient discharged with v/s stable. Written and verbal after care instructions given and explained. Patient alert, oriented and verbalized understanding of instructions. Ambulatory with steady gait. All questions addressed prior to discharge. ID band removed. Patient advised to follow up with PMD. Rx of Coumadin given. Patient educated on indication of medication including possible reaction and side effects. Opportunity to ask questions provided and answered. Pt given information for [facility].
== END 2017-07-17 12:29 | disposition home or self-care (01) ==
LOC: MED 10:00
DX: Z76.0 Encounter for issue of repeat prescription (principal); D64.9 Anemia, unspecified; Z86.718 Personal history of other venous thrombosis and embolism; Z79.899 Other long term (current) drug therapy
CPT/HCPCS: 36415; 80048; 85025; 85610; 85730; 99284

== ENCOUNTER 2017-07-31 21:17 | Emergency (ER) | payer MEDICAID ==
[~2017-07-31] VITALS: Ht 152.4 cm; Wt 66.4 kg
[2017-07-31 21:24] VITALS: BP 114/78
--- NOTE | 2017-07-31 21:38 | NUR ---
PT AMBULATED TO BED 4 WITH FAMILY
--- NOTE | 2017-07-31 21:50 | NUR ---
51/F BIB DAUGHTER W CC OF NEEDING REFILL FOR WARFARIN FOR DVT TO LLE. PT STATES SHE MISSED 2 DOSES, LAST INR/PT WAS 4 WEEKS AGO. LLE NOTED WITH NONPITTING MODERATE SWELLING, MILD REDNESS, DENIES ANY PAIN, +PMSC, PT ABLE TO AMBULATE WITHOUT DISCOMFORT. DENIES ANY BLEEDING. DENIES CP/SOB. HX OF DVT 02/2017. NO PCP/COUMADIN CLINIC YET PER DAUGHTER.
--- NOTE | 2017-07-31 21:57 | NUR ---
Dr. Hamilton evaluating patient at bedside.
[2017-07-31 22:13] VITALS: BP 112/67
--- NOTE | 2017-07-31 22:13 | NUR ---
Patient discharged with v/s stable. Written and verbal after care instructions given and explained. Patient alert, oriented and verbalized understanding of instructions. Ambulatory with to car. All questions addressed prior to discharge. ID band removed. Patient advised to follow up with PMD. Rx of WARFARIN given.[facility] INFORMATION PROVIDED Patient educated on indication of medication including possible reaction and side effects. Opportunity to ask questions provided and answered.
== END 2017-07-31 22:13 | disposition home or self-care (01) ==
LOC: MED 21:17
DX: Z76.0 Encounter for issue of repeat prescription (principal); Z86.718 Personal history of other venous thrombosis and embolism
CPT/HCPCS: 99283

== ENCOUNTER 2019-01-22 14:08 | Inpatient (IN) | payer MEDICAID ==
[~2019-01-22] VITALS: Ht 154.9 cm; Wt 69.9 kg
[2019-01-22 14:09] VITALS: BP 140/71
--- NOTE | 2019-01-22 14:18 | NUR ---
PATIENT AMBULATED TO ER BED 12.
--- NOTE | 2019-01-22 14:30 | NUR ---
PT IS A 53 Y/O FEMALE WHO PRESENTS TO THE ED C/O DIFFICULTY BREATHING. PT STATES THAT HAD SEEN HER PCP AND WAS TOLD TO COME IN DUE TO FLUID IN HER R LUNG. PT REPORTS 5/10 ACHING L LEG PAIN THAT DOES NOT RADIATE. PT DENIES CP, REPORTS SOB, 97% ON RA, DENIES N/V/D. PT AWAKE AND ALERT, RR EVEN/UNLABORED. PT REPOSITIONED FOR COMFORT, BED IN LOWEST POSITION. ER MD DR. DOBBS NOTIFIED. WILL CONTINUE TO MONITOR. MED HX: TACHYCARDIA, ANEMIA, CYST IN UTERUS, LEFT LEG DVT ; TAKE WARFARIN MEDS---WARFARIN NKA
--- NOTE | 2019-01-22 14:50 | NUR ---
XRAY AT BEDSIDE.
[2019-01-22] MEDS ORDERED: WARF-18 PO (15:03)
[2019-01-22 15:05] LABS: BASOPHILS % (AUTO) 0.5 % (0.0-2.0); EOSINOPHILS % (AUTO) 0.5 % (0.0-4.0); HEMATOCRIT 32.7 % (36-48); HEMOGLOBIN 10.1 g/dL (12.0-16.0); LYMPHOCYTES # (AUTO) 1.3 K/uL (2.5-16.5); LYMPHOCYTES % (AUTO) 14.1 % (20.5-51.1); MEAN CORPUSCULAR HEMOGLOBIN 23 pg (27-31); MEAN CORPUSCULAR HGB CONC 31 g/dL (33-37); MEAN CORPUSCULAR VOLUME 75.2 fL (80-94); MONOCYTES # (AUTO) 0.4 K/uL (0.8-1.0); MONOCYTES % (AUTO) 4.7 % (1.7-9.3); NEUTROPHILS # (AUTO) 7.1 K/uL (1.8-7.7); NEUTROPHILS % (AUTO) 80.2 % (42.2-75.2); PLATELET COUNT (AUTO) 620 K/uL (140-450); RED BLOOD CELL COUNT(AUTO) 4.35 MIL/uL (4.20-5.40); RED CELL DISTRIBUTION WIDTH 20.3 % (11.6-13.7); WHITE BLOOD COUNT (AUTO) 8.9 K/uL (4.8-10.8)
[2019-01-22 15:17] LABS: ANION GAP 10.3 (8-16); CARBON DIOXIDE 26.6 mmol/L (21-32); CREATININE 0.6 mg/dL (0.6-1.3); POTASSIUM 3.9 mmol/L (3.5-5.1)
--- NOTE | 2019-01-22 15:20 | NUR ---
US AT BEDSIDE.
[2019-01-22 15:21] LABS: PROTHROMBIN TIME 33.9 secs (10.8-13.4)
[2019-01-22 15:23] LABS: ALBUMIN 3.4 g/dL (3.4-5.0); MAGNESIUM 2.1 mg/dL (1.8-2.4); TOTAL BILIRUBIN 0.3 mg/dL (0.0-1.0)
--- NOTE | 2019-01-22 16:10 | NUR ---
DR. DOBBS ORDERED CT CONTRAST FOR PATIENT. ATTEMPTED TO OBTAIN CONSENT FROM PATIENT. PATIENT REFUSING AT THIS TIME AND STATES THAT THE CT IS MAKING HER NERVOUS.
--- NOTE | 2019-01-22 16:30 | NUR ---
PT AGAIN REFUSING CT WITH CONTRAST AT THIS TIME.
--- NOTE | 2019-01-22 16:52 | NUR ---
Dr. Thomas evaluating patient at bedside.
[2019-01-22] MEDS ORDERED: HEPARIN PER PHARMACY MC PRN (17:10)
[2019-01-22] MEDS ORDERED: ACETAMINOPHEN 325 MG TAB PO PRN (17:10)
[2019-01-22] MEDS ORDERED: DOCUSATE SODIUM 100 MG GELCAP PO PRN (17:10)
[2019-01-22] MEDS ORDERED: ONDANSETRON 4 MG/2 ML VIAL IM/IVP PRN (17:10)
--- NOTE | 2019-01-22 17:30 | NUR ---
PATIENT RESTING AT THIS TIME, NO SIGNS OF DISTRESS.
[2019-01-22] MEDS ORDERED: LORazepam 2 MG/ML VIAL IVP SCH (18:00)
[2019-01-22 18:08] LABS: PHOSPHORUS 2.8 mg/dL (2.5-4.9); THYROID STIMULATING HORMONE 3.87 uIU/mL (0.34-3.74)
[2019-01-22 18:40] VITALS: BP 114/82
--- NOTE | 2019-01-22 18:40 | NUR ---
RECEIVED PT FROM ER NURSE, PT IS AWAKE AND ALERT AND AMBULATED TO THE BED, WITH AN IV LINE ON THE LEFT AC G. 20 INTACT, PT DENIES PAIN AND NO SOB NOTED. VITAL SIGNS TAKEN AND BP IS 114/82, PULSE IS 121, O2 SATURATION IS 96%, RESPIRATION IS 18/MIN AND TEMPERATURE IS 98.4 , NO SIGN OF DISTRESS NOTED AND WILL MONITOR PT.
--- NOTE | 2019-01-22 18:40 | NUR ---
Patient will be admitted to care of DR. DAO. Admited to TELE. Will go to room 120A. Belongings list completed. Report to ANA CHAPPELL.
--- NOTE | 2019-01-22 18:45 | NUR ---
MRSA SWAB DONE TO PT NOW.
[2019-01-22] MEDS ORDERED: hePARIN / DEXT 5% PREMIX 250 ML IV SCH (19:20)
--- NOTE | 2019-01-22 19:25 | NUR ---
ENDORSED PT TO CREDIT CONTROL OFFICER NURSE FOR CONTINUITY OF ADMISSION PROCESS, PT IS STABLE.
--- NOTE | 2019-01-22 19:30 | NUR ---
RECIEVED REPORT FROM AM SHIFT NURSE. PATIENT IS AWAKE,ALERT, TACHYCARDIC ,BUT NO SIGNS OF RESPIRATORY DISTRESS NOTED AT THIS TIME ,ON HIGH BACK REST ,WITH IV SITE DRY AND INTACT ,ON NPO FOR CT CHEST ANGIO.,CONSENT SIGNED. CALL LIGHT IS WITHIN REACH.WILL CONTINUE TO MONITOR .
--- NOTE | 2019-01-22 20:00 | NUR ---
SPOKE TO PT ABOUT POSSIBLY STARTING ANOTHER IV FOR HEPARIN DRIP AND PT SAID SHE WAS NOT ACCEPTING TO RECEIVE HEPARIN DRIP. PT STATES SHE IS ON WARFARIN AND SHE DOES NOT WANT ANOTHER ANTICOAGULANT. EXPLAINED TO PT THAT HEPARIN DOES NOT WORK THE SAME WAY WARFARIN AND THAT HEPARIN ALSO WORKS INSTANTLY OPPOSED TO WARFARIN. PT STATES THAT SHE WOULD STILL PREFER WARFARIN PILL AND NO IV, PT ALSO MENTIONED THAT EVERY NEW MEDICATION CAUSES HER TACHYCARDIA AND SHE DOES NOT WANT IT. SPOKE TO DR BAKER ABOUT PT'S REFUSAL AND SHE SAID SHE WOULD TALK TO PT BUT SHOULD BE FINE EITHER WAY BECAUSE ULTRASOUND WAS NEGATIVE FOR DVT.
--- NOTE | 2019-01-22 20:40 | NUR ---
PT LEFT UNIT TO CT VIA WHEELCHAIR, ACCOMPANIED BY TIRE DESIGN ENGINEER, PT IN STABLE CONDITION.
[2019-01-22] MEDS: NACL 0.9% 1,000 ML IV SCH (21:00)
--- NOTE | 2019-01-22 21:05 | NUR ---
PT ARRIVED FROM CT IN STABLE CONDITION. PT A LITTLE SHAKEN UP ABOUT THE WARM FLUSH SHE FELT DURING CT THAT WE HAD DISCUSSED PRIOR TO CT, AND THAT SHE DISCUSSED WITH STORE SALES CONSULTANT WELL, WE TOLD HER THAT WAS THE WARM FLUSH WE DISCUSSED PRIOR TO HER GOING. ADVISED PT TO DRINK PLENTY OF WATER TO HELP KIDNEYS FLUSH OUT CONTRAST, PT VERBALIZED UNDERSTANDING.
--- NOTE | 2019-01-22 21:45 | NUR ---
DR BAKER SPOKE TO PT REGARDING HEPARIN DRIP, EXPLAINED THE DIFFERENCE BETWEEN PO WARFARIN AND IV HEPARIN DRIP AND GAVE PT OPPORTUNITY TO HAVE CONCERNS ADDRESSED. PT STILL SAYS SHE DOES NOT WANT HEPARIN DRIP.
[2019-01-23] VITALS: BP 112/62
--- NOTE | 2019-01-23 | NUR ---
VITAL SIGNS STABLE, DENIES PAIN. NO SIGNS/SYMPTOMS OF DISTRESS NOTED. BED IN LOWEST POSITION, CALL LIGHT WITHIN REACH. WILL CONTINUE TO MONITOR.
--- NOTE | 2019-01-23 02:40 | NUR ---
DR BAKER SPOKE TO PT REGARDING PROCEDURE AGAIN. ADDRESSED ALL OF PT'S QUESTIONS AND CONCERNS. PT SAID THAT SHE FEELS BETTER ABOUT PROCEDURE NOW.
[2019-01-23 04:00] VITALS: BP 106/64
--- NOTE | 2019-01-23 04:00 | NUR ---
VITAL SIGNS STABLE, DENIES PAIN. NO SIGNS/SYMPTOMS OF DISTRESS NOTED. BED IN LOWEST POSITION, CALL LIGHT WITHIN REACH. WILL CONTINUE TO MONITOR.
--- NOTE | 2019-01-23 04:59 | NUR ---
PT IS STILL VERY NERVOUS ABOUT THORACENTESIS. AND ASKED IF HER DAUGHTER CAN COME BEFORE VISITING HOURS BECAUSE IF DAUGHTER NOT HERE BEFORE PROCEDURE, PT WILL REFUSE PROCEDURE. TOLD PT DAUGHTER CAN COME WAIT IN LOBBY.
[2019-01-23] MEDS: PANTOPRAZOLE 40 MG TABEC PO SCH (05:49)
--- NOTE | 2019-01-23 07:15 | NUR ---
REPORT GIVEN TO TA MOLINA FOR CONTINUITY OF CARE PT IN STABLE CONDITION.
--- NOTE | 2019-01-23 07:17 | NUR ---
RECEIVED BEDSIDE REPORT FROM NAPHTHA WASHING SYSTEM OPERATOR RN FOR CONTINUITY OF CARE. AOX 4. DAUGHTER AT BEDSIDE TO TRANSLATE PER PT PREFERENCE. PT IS ANXIOUS, BUT COOPERATIVE. INFORMED PT I WILL CHECK EMAR TO SEE IF ANTIANXIETY MEDICATION IS AVAILABLE. PT IN STABLE CONDITION. DENIES PAIN AND DISCOMFORT. STATES MILD SOB WHEN RESTING IN BED BUT IMPROVED SINCE ADMISSION AND INCREASED SOB WITH EXERTION. RESPIRATIONS EVEN AND LUNG SOUNDS CTA. EQUAL AIR FLOW BILATERALLY. S1 AND S2 PRESENT, NO MURMURS. TACHYCARDIC, ON TELE MONITOR. ACTIVE BS IN ALL QUADRANTS. ABD IS LARGE- DOCTOR IS AWARE. SKIN INTACT. PT IS AMBULATORY WITHOUT ASSIST. IV SITE PATENT AND ASYMPTOMATIC, INFUSING IVF PER MD ORDERS. ALL SAFETY PRECAUTIONS IN PLACE, WILL CONTINUE TO MONITOR.
[2019-01-23 07:43] LABS: BASOPHILS % (AUTO) 0.4 % (0.0-2.0); EOSINOPHILS % (AUTO) 0.4 % (0.0-4.0); HEMOGLOBIN 9.5 g/dL (12.0-16.0); LYMPHOCYTES # (AUTO) 0.9 K/uL (2.5-16.5); MEAN CORPUSCULAR HEMOGLOBIN 23 pg (27-31); MEAN CORPUSCULAR HGB CONC 31 g/dL (33-37); MEAN CORPUSCULAR VOLUME 75.9 fL (80-94); MONOCYTES # (AUTO) 0.4 K/uL (0.8-1.0); MONOCYTES % (AUTO) 4.4 % (1.7-9.3); NEUTROPHILS # (AUTO) 8.4 K/uL (1.8-7.7); PLATELET COUNT (AUTO) 579 K/uL (140-450); RED BLOOD CELL COUNT(AUTO) 4.08 MIL/uL (4.20-5.40); RED CELL DISTRIBUTION WIDTH 19.7 % (11.6-13.7); WHITE BLOOD COUNT (AUTO) 9.8 K/uL (4.8-10.8)
[2019-01-23 08:00] VITALS: BP 130/82
[2019-01-23 08:06] LABS: ANION GAP 13.9 (8-16); CARBON DIOXIDE 24.8 mmol/L (21-32); CREATININE 0.5 mg/dL (0.6-1.3); POTASSIUM 3.7 mmol/L (3.5-5.1)
[2019-01-23 08:14] LABS: PROTHROMBIN TIME 26.5 secs (10.8-13.4)
[2019-01-23 08:20] LABS: BARBITURATE, URINE NEG. ng/ml (NEG <=200); BENZODIAZEPINE, URINE NEG. ng/mL (NEG <=200); CANNABINOID, URINE NEG. ng/mL (NEG <=50); COCAINE, URINE NEG. ng/mL (NEG <=300); OPIATE, URINE NEG. ng/mL (NEG <=2000); PHENCYCLIDINE SCREEN,URINE NEG. ng/mL (NEG <=25)
[2019-01-23 08:27] LABS: BILIRUBIN,URINE NEGATIVE (NEGATIVE); BLOOD, URINE 3+ (NEGATIVE); COLOR,URINE YELLOW (YELLOW); LEUKOCYTE ESTERASE ,URINE NEGATIVE (NEGATIVE); NITRITE, URINE NEGATIVE (NEGATIVE); PH,URINE 6.5 (5.0-9.0); UGLUCOSE NEGATIVE (NEGATIVE)
[2019-01-23 08:28] LABS: CHOL/HDL RATIO 5.7 (1-4.5)
[2019-01-23 08:29] LABS: MAGNESIUM 1.9 mg/dL (1.8-2.4); PHOSPHORUS 2.9 mg/dL (2.5-4.9)
[2019-01-23 08:34] LABS: APPEARANCE,URINE SLIGHTLY HAZY (CLEAR)
[2019-01-23 08:36] LABS: LYMPHOCYTES % (AUTO) 9.6 % (20.5-51.1); NEUTROPHILS % (AUTO) 85.2 % (42.2-75.2)
[2019-01-23 08:43] LABS: RBC,URINE 20-50 /HPF (0-5); WBC,URINE 0-5 /HPF (0-5)
[2019-01-23] MEDS: FERROUS SULFATE 325 MG TABEC PO SCH ×3 (08:44→16:23)
--- NOTE | 2019-01-23 08:50 | NUR ---
SCHEDULED MEDICATIONS ADMINISTERED. PT RESTING COMFORTABLY IN BED WITH DAUGHTER AT BEDSIDE. ALL NEEDS MET A THIS TIME. NO LONGER C/O ANXIETY.
[2019-01-23] MEDS: NACL 0.9% 1,000 ML IV SCH ×2 (09:03→20:04)
[2019-01-23] MEDS ORDERED: FUROSEMIDE 20 MG/2 ML VIAL IVP SCH ×2 (09:30→14:30)
--- NOTE | 2019-01-23 09:37 | NUR ---
PT C/O SOB. SATURATING AT 99% RA. NO VISIBLE SIGNS OF INCREASED WOB. PLACED ON 2L NC. ATTEMPTED TO ADMINISTERED LASIX. PATIENT STATES SHE DOES NOT WANT IT NOW. EXPLAINED THAT LASIX WILL HELP RID THE BODY OF THE EXTRA FLUID IN PLEURAL SPACE AND DECREASE SOB. PT VERBALIZED UNDERSTANDING. ASKED TO RECEIVE THE MEDICATION AFTER ONE HOUR. WILL ADMINISTER LASIX LATER.
[2019-01-23 09:59] LABS: PROTHROMBIN TIME 25.4 secs (10.8-13.4)
--- NOTE | 2019-01-23 11:18 | NUR ---
PT STILL UNWILLING TO GET LASIX IV. ASKED PATIENT TO VERBALIZE SPECIFIC CONCERNS BUT PT DOES NOT STATE ANYTHING SPECIFIC, JUST WANTS THE LASIX TO BE GIVEN 30 MINUTES LATER. AGAIN EXPLAINED INDICATIONS AND BENEFITS OF LASIX IN TARGETING TREATMENT OF CC AND DX. WITH DAUGHTER AT BEDSIDE ALSO URGING PATIENT TO COMPLY, PT FINALLY AGREED AND LASIX WAS ADMINISTERED ORDERED.
[2019-01-23 12:00] VITALS: BP 129/81
--- NOTE | 2019-01-23 12:17 | NUR ---
PATIENT COOPERATIVE WITH TAKING SCHEDULED FERR SULFATE. PT VOLUNTARILY STATES SHE HAS VOIDED ALREADY SINCE LASIX IVF.
--- NOTE | 2019-01-23 13:24 | NUR ---
DR. PERSAUD AT BEDSIDE TO EVALUATE PATIENT.
[2019-01-23] MEDS ORDERED: SODIUM FERRIC GLUCONATE 125 MG in NACL 0.9% 100 ML IV SCH (13:30)
--- NOTE | 2019-01-23 14:09 | NUR ---
DR. GIORDANO AT BEDSIDE TO ANSWER ALL OF PATIENT'S QUESTIONS. PT VERBALIZED COMPLETE UNDERSTANDING.
--- NOTE | 2019-01-23 14:38 | NUR ---
PATIENT STATES SOB SYMPTOMS HAVE DECREASED SINCE THE ADMINISTRATION OF IV LASIX. SHE FEELS BETTER NOW.
--- NOTE | 2019-01-23 15:41 | NUR ---
DR. MULTANI AT BEDSIDE TO ASSESS PATIENT.
[2019-01-23 16:00] VITALS: BP 109/76
--- NOTE | 2019-01-23 16:00 | NUR ---
ENDORSED POC TO TA PEREZ. PT IN STABLE CONDITION.
--- NOTE | 2019-01-23 16:00 | NUR ---
RECEIVED REPORT REGARDING PT FROM MORNING NURSE. PT WAS AWAKE, VS TAKEN BP 116/57, T 99.4, HR 107, RR 17, O2 96% ON 2L VIA NC. DENIES ANY PAIN. NO SOB NOTED. WILL CONTINUE TO MONITOR PT.
--- NOTE | 2019-01-23 19:13 | NUR ---
ENDORSED PT TO [employer] NURSE FOR CONTINUITY OF CARE.
--- NOTE | 2019-01-23 19:30 | NUR ---
RECEIVED BEDSIDE REPORT FROM DAY SHIFT RN, PATIENT SITTING ON BEDSIDE, NO SIGNS OF RESPIRATORY DISTRESS, ON RA, V/S STABLE, DENIES PAIN. LUNGS ARE CLEAR, DENIES DIFFICULTY BREATHING. IV IN LEFT AC 20 G INFUSING NS AT 60 ML/HR DRESSING IS CLEAN AND INTACT. CALL LIGHT WITHIN REACH.
[2019-01-23 20:00] VITALS: BP 116/73
[2019-01-23] MEDS: busPIRone 5 MG TAB PO SCH (20:04)
--- NOTE | 2019-01-23 20:04 | NUR ---
PATIENT REFUSED BUSPAR STATED SHE DOESN'T WANT IT. STARTED NEW BAG NS INFUSING AT 60 ML/HR.
[2019-01-24] VITALS: BP 115/80
--- NOTE | 2019-01-24 02:10 | NUR ---
PATIENT SLEEPING, NO SIGNS OF DISTRESS.
[2019-01-24 04:00] VITALS: BP 118/79
--- NOTE | 2019-01-24 04:10 | NUR ---
PATIENT REQUESTED TO SPEAK TO A DR, NOTIFIED DR PEPPER.
[2019-01-24] MEDS: PANTOPRAZOLE 40 MG TABEC PO SCH (06:11)
--- NOTE | 2019-01-24 06:19 | NUR ---
PATIENT REFUSED DUE PROTONIX
[2019-01-24 06:33] LABS: BASOPHILS # (AUTO) 0.1 K/uL (0.00-0.22); BASOPHILS % (AUTO) 0.6 % (0.0-2.0); EOSINOPHILS # (AUTO) 0.1 K/uL (0-0.4); EOSINOPHILS % (AUTO) 1.3 % (0.0-4.0); HEMOGLOBIN 9.9 g/dL (12.0-16.0); LYMPHOCYTES % (AUTO) 10.5 % (20.5-51.1); MEAN CORPUSCULAR HEMOGLOBIN 23 pg (27-31); MEAN CORPUSCULAR HGB CONC 31 g/dL (33-37); MEAN CORPUSCULAR VOLUME 75.5 fL (80-94); MONOCYTES # (AUTO) 0.5 K/uL (0.8-1.0); MONOCYTES % (AUTO) 5.9 % (1.7-9.3); NEUTROPHILS # (AUTO) 7.6 K/uL (1.8-7.7); NEUTROPHILS % (AUTO) 81.7 % (42.2-75.2); PLATELET COUNT (AUTO) 614 K/uL (140-450); RED BLOOD CELL COUNT(AUTO) 4.24 MIL/uL (4.20-5.40); RED CELL DISTRIBUTION WIDTH 19.9 % (11.6-13.7); WHITE BLOOD COUNT (AUTO) 9.3 K/uL (4.8-10.8)
[2019-01-24 07:01] LABS: ANION GAP 14.4 (8-16); CARBON DIOXIDE 24.1 mmol/L (21-32); CREATININE 0.5 mg/dL (0.6-1.3); POTASSIUM 3.5 mmol/L (3.5-5.1)
[2019-01-24 07:05] LABS: PHOSPHORUS 2.7 mg/dL (2.5-4.9)
--- NOTE | 2019-01-24 07:13 | NUR ---
WILL ENDORSE PATIENT TO DAY SHIFT RN, PATIENT STABLE.
--- NOTE | 2019-01-24 07:15 | NUR ---
RECEIVED BEDSIDE REPORT FROM APPAREL SALES LEADER NURSE. PATIENT IS AWAKE, ALERT AND ORIENTEDX4. NO SIGNS OF DISTRESS ON RA. SKIN IS INTACT. PATIENT IS AMBULATORY, INTACT. IV ON L AC 20G INFUSING NS AT 60. CLEAN, DRY AND INTACT. PATIENT REQUESTING PADS AND UNDERWEAR, GAVE PATIENT PADS AND AN UNDERWEAR. BED IN LOW POSITION. CALL LIGHT WITHIN REACH. WILL CONTINUE TO MONITOR THE PATIENT
[2019-01-24 08:00] VITALS: BP 124/77
[2019-01-24] MEDS: FERROUS SULFATE 325 MG TABEC PO SCH ×3 (08:47→16:32)
[2019-01-24] MEDS: busPIRone 5 MG TAB PO SCH ×2 (08:50→21:00)
--- NOTE | 2019-01-24 08:50 | NUR ---
ADMINISTERED LUIS CARLOS MED. PATIENT TOLERATED WELL. EDUCATED ON SIDE EFFECTS. PATIENT REFUSES BUSPAR, SHE SAID SHE DOESNT FEEL ANXIOUS AND SHE IS CALM. EDUCATED ON RISKS REFUSAL. SHE STILL DOES NOT WANT IT. WILL CONTINUE TO MONITOR THE PATIENT. BED IN LOW POSITION. WILL CONTINUE TO MONITOR.
[2019-01-24] MEDS ORDERED: SPIRONOLACTONE 50 MG TAB PO SCH (09:14)
[2019-01-24] MEDS ORDERED: FUROSEMIDE 20 MG/2 ML VIAL IVP SCH (09:15)
--- NOTE | 2019-01-24 10:00 | NUR ---
PATIENT SITTING IN BED. NO SIGNS OF DISTRESS. WILL CONTINUE TO MONITOR THE PATIENT
[2019-01-24 10:33] LABS: PROTHROMBIN TIME 18.6 secs (10.8-13.4)
--- NOTE | 2019-01-24 11:18 | NUR ---
ADMINISTERED LUIS CARLOS MEDS. PATIENT TOLERATED WELL. EDUCATED ON SIDE EFFECTS. PRESIDENTIAL SUPPORT SPECIALIST AT BEDSIDE. WILL CONTINUE TO MONITOR THE PATIENT.
[2019-01-24 12:00] VITALS: BP 112/78
--- NOTE | 2019-01-24 12:59 | NUR ---
PATIENT REFUSED HEPARIN, SHE SAID HE WILL TAKE AN ANTICOAGULANT BUT PILL FORM. WILL TELL DR KRUSE.
--- NOTE | 2019-01-24 13:27 | NUR ---
PATIENT HAS BEEN SCREENED AND CATEGORIZED MODERATE NUTRITION RISK. PATIENT WILL BE SEEN WITHIN 3-5 DAYS OF ADMISSION. 01/25/19GABRIELLE MAYNARD MBA, RD
--- NOTE | 2019-01-24 13:31 | NUR ---
DR KRUSE SAID IT IS OK THAT PATIENT IS REFUSING HEPARIN, HE WILL D/C HEPARIN AND HE SAID TO JUST PLACE SCDS. CALLED TRUCKLOAD OWNER OPERATOR HE SAID HE WILL BRING SOME
[2019-01-24 15:20] LABS: TRANSFERRIN 307 mg/dL (200 - 370)
--- NOTE | 2019-01-24 15:23 | NUR ---
IV INFILTRATED ON L AC 20G, REMOVED AND TIP IS INTACT. NEW IV ON R FA 22G INFUSING NS AT 60. CLEAN, DRY AND INTACT. SCDS ARE PLACED ON PATIENT.
[2019-01-24 16:00] VITALS: BP 110/68
[2019-01-24] MEDS: NACL 0.9% 1,000 ML IV SCH (16:32)
[2019-01-24] MEDS: FUROSEMIDE 20 MG/2 ML VIAL IVP SCH (16:34)
--- NOTE | 2019-01-24 16:42 | NUR ---
ADMINISTERED MEDS ORDERED AND HUNG NEW BAG OF NS INFUSING NS AT 60. CLEAN, DRY AND INTACT. EDUCATED ON SIDE EFFECTS. WILL CONTINUE TO MONITOR THE PATIENT. DAUGHTER AT BEDSIDE
--- NOTE | 2019-01-24 18:00 | NUR ---
PATIENT IN NO SIGNS OF DISTRESS. WILL CONTINUE TO MONITOR THE PATIENT
--- NOTE | 2019-01-24 19:12 | NUR ---
GAVE BEDSIDE REPORT TO DIRT SUPERVISOR NURSE. PATIENT IS ENDORSED IN STABLE CONDITION
--- NOTE | 2019-01-24 19:20 | NUR ---
RECEIVED REPORT FROM DAY SHIFT NURSE. PT LYING IN BED. AAOX4. NO C/O PAIN OR SOB. ON ROOM AIR. SKIN INTACT. IV TO RIGHT #22G, NS AT 60 ML/HR INFUSING WELL. SCD IN PLACE. DISCUSSED PLAN OF CARE, PT VERBALIZED UNDERSTANDING. SAFETY PRECAUTION IN PLACE. CALL LIGHT WITHIN REACH.
[2019-01-24 20:00] VITALS: BP 111/78
--- NOTE | 2019-01-24 21:00 | NUR ---
PT REFUSED BUSPAR 7.5 MG PO. EXPLAINED TO PT THE RISK AND BENEFITS. PT VERBALIZED UNDERSTANDING BUT STILL REFUSED.
--- NOTE | 2019-01-24 22:30 | NUR ---
PT RESTING IN BED WATCHING TV. NO C/O PAIN . NO RESP DISTRESS NOTED. ALL NEEDS ATTENDED AT THIS TIME. CALL LIGHT WITHIN REACH.
[2019-01-25] VITALS: BP 99/64
--- NOTE | 2019-01-25 01:00 | NUR ---
PT SLEEPING BUT EASILY AROUSABLE. NO S/S OF PAIN. NO S/S OF SOB. IVF INFUSING WELL.
--- NOTE | 2019-01-25 03:25 | NUR ---
PT SLEEPING. RESP EVEN AND UNLABORED. NO S/S OF PAIN. CALL LIGHT WITHIN REACH.
[2019-01-25 04:00] VITALS: BP 110/63
--- NOTE | 2019-01-25 05:30 | NUR ---
PT LYING IN BED, AWAKE. DENIES PAIN OR SOB. ALL NEEDS ATTENDED AT THIS TIME. CALL LIGHT WITHIN REACH.
--- NOTE | 2019-01-25 05:55 | NUR ---
PT REFUSED PROTONIX 40 MG. EXPLAINED TO PT THE RISK AND BENEFITS. PT VERBALIZED UNDERSTANDING BUT STILL REFUSED. DR. DURAN MADE AWARE.
[2019-01-25] MEDS: PANTOPRAZOLE 40 MG TABEC PO SCH (06:03)
[2019-01-25 06:52] LABS: PHOSPHORUS 3.1 mg/dL (2.5-4.9)
[2019-01-25 06:53] LABS: BASOPHILS % (AUTO) 0.5 % (0.0-2.0); EOSINOPHILS # (AUTO) 0.1 K/uL (0-0.4); EOSINOPHILS % (AUTO) 1.4 % (0.0-4.0); LYMPHOCYTES # (AUTO) 1.1 K/uL (2.5-16.5); LYMPHOCYTES % (AUTO) 12.3 % (20.5-51.1); MEAN CORPUSCULAR HEMOGLOBIN 23 pg (27-31); MEAN CORPUSCULAR HGB CONC 31 g/dL (33-37); MEAN CORPUSCULAR VOLUME 75.3 fL (80-94); MONOCYTES # (AUTO) 0.5 K/uL (0.8-1.0); MONOCYTES % (AUTO) 6.3 % (1.7-9.3); NEUTROPHILS # (AUTO) 6.9 K/uL (1.8-7.7); NEUTROPHILS % (AUTO) 79.5 % (42.2-75.2); PLATELET COUNT (AUTO) 569 K/uL (140-450); RED BLOOD CELL COUNT(AUTO) 3.85 MIL/uL (4.20-5.40); RED CELL DISTRIBUTION WIDTH 20.3 % (11.6-13.7); WHITE BLOOD COUNT (AUTO) 8.7 K/uL (4.8-10.8)
[2019-01-25 06:56] LABS: ANION GAP 12.9 (8-16); CREATININE 0.6 mg/dL (0.6-1.3); POTASSIUM 3.9 mmol/L (3.5-5.1)
[2019-01-25 07:01] LABS: PROTHROMBIN TIME 15.8 secs (10.8-13.4)
--- NOTE | 2019-01-25 07:20 | NUR ---
ENDORSED PT TO DAY SHIFT NURSE. PT IN STABLE CONDITION.
--- NOTE | 2019-01-25 07:21 | NUR ---
RECEIVED BEDSIDE REPORT FROM COMPUTER METEOROLOGIST NURSE. PATIENT IS AWAKE, ALERT AND ORIENTEDX4. CITIZEN OF [place] SPEAK[place]. SKIN IS INTACT. PATIENT IS AMBULATORY. IV ON R FA 22G INFUSING NS AT 60. CLEAN, DRY AND INTACT. PATIENT ABLE TO MAKE NEEDS KNOWN. CONTINENT. BED IN LOW POSITION. CALL LIGHT WITHIN REACH. WILL CONTINUE TO MONITOR THE PATIENT
[2019-01-25 08:00] VITALS: BP 124/71
[2019-01-25] MEDS ORDERED: PHYTONADIONE 10 MG/ML AMP SUBQ SCH (08:00)
[2019-01-25] MEDS: busPIRone 5 MG TAB PO SCH ×2 (08:38→21:00)
[2019-01-25] MEDS: FERROUS SULFATE 325 MG TABEC PO SCH ×4 (08:44→17:34)
[2019-01-25] MEDS: FUROSEMIDE 20 MG/2 ML VIAL IVP SCH ×2 (08:46→17:00)
--- NOTE | 2019-01-25 08:47 | NUR ---
ADMINISTERED MED. EDUCATED ON SIDE EFFECTS. PATIENT REFUSED BUSPAR, LASIX AND SPIRONOLACTONE. PATIENT SAID THOSE MEDS MAKE HER FEEL WORSE. EDUCATED ON HER RISKS OF REFUSING MEDS. DR KRUSE IN HE SAID HE WILL CHANGE THE VITAMIN K INJECTION TO PILL FORM. WILL CONTINUE TO MONITOR THE PATIENT.
[2019-01-25] MEDS ORDERED: LORazepam 0.5 MG TAB PO PRN (08:50)
[2019-01-25] MEDS ORDERED: PHYTONADIONE 5 MG TAB PO SCH (09:00)
[2019-01-25] MEDS ORDERED: SPIRONOLACTONE 50 MG TAB PO SCH (09:00)
--- NOTE | 2019-01-25 09:42 | NUR ---
ADMINISTERED SCHEDULED VITAMIN K MED. PATIENT EDUCATED. NO SIGNS OF DISTRESS. WILL CONTINUE TO MONITOR THE PATIENT.
--- NOTE | 2019-01-25 11:45 | NUR ---
ADMINISTER MEDS. PATIENT TOLERATED WELL. EDUCATED ON SIDE EFFECTS. WILL CONTINUE TO MONITOR THE PATIENT. Addendum: 01/25/19 at 1147 by Libia Sharma RN WRONG DOCUMENTATION
--- NOTE | 2019-01-25 11:47 | NUR ---
PATIENT REFUSED TO TAKE FERROUS SULFATE AT THIS TIME. SHE STATES IT HURTS HER STOMACH TOO MUCH AND DOES NOT WANT TO TAKE IT RIGHT NOW. WILL CONTINUE TO MONITOR THE PATIENT.
[2019-01-25 12:00] VITALS: BP 125/70
--- NOTE | 2019-01-25 13:03 | NUR ---
SPOKE TO THE PATIENT EXPLAINED TO HER THAT I SPOKE TO US HILARIO AKERS, AND SHE SPOKE TO THE RADIOLOGIST THATS SUPPOSE TO DO THORACENTESIS AND POSSIBLE PARACENTESIS. SHE SAID THAT THE RADIOLOGIST IS IN [place] AND HE WILL CALL HER BACK. OSWALD TOLD ME SOME RADIOLOGIST WILL NOT DO TWO OF THE PROCEDURES AND PATIENT VERBALIZED UNDERSTANDING.
[2019-01-25] MEDS: NACL 0.9% 1,000 ML IV SCH (14:00)
[2019-01-25 14:26] LABS: PROTHROMBIN TIME 13.7 secs (10.8-13.4)
--- NOTE | 2019-01-25 15:37 | NUR ---
thoracentesis done. 1.4L OUT. PARACENTESIS BEING PERFORMED NOW
[2019-01-25 16:00] VITALS: BP 103/57
--- NOTE | 2019-01-25 16:00 | NUR ---
PARACENTESIS DONE. 1.2L OUT. FLUIDS OF THORACENTESIS AND PARACENTESIS SENT TO LAB
--- NOTE | 2019-01-25 17:52 | NUR ---
ADMINISTERED SCHEDULED FERROUS SULFATE. PATIENT REFUSED LASIX AND COUMADIN. DR JOSE IS AWARE. EDUCATED ON SIDE EFFECTS AND RISKS OF REFUSING MEDS. PATIENT VERBALIZED UNDERSTANDING. WILL CONTINUE TO MONITOR
[2019-01-25] MEDS ORDERED: WARFARIN 5 MG TAB PO SCH (18:00)
--- NOTE | 2019-01-25 19:10 | NUR ---
GAVE BEDSIDE REPORT TO ELECTRIC SPOT WELDER NURSE. PATIENT ENDORSED IN STABLE CONDITION
--- NOTE | 2019-01-25 19:15 | NUR ---
RECEIVED PT FROM DONNA RN PT LAO SPEAKER AAOX4 AMBULATORY IV ON RT ARM INFUSINBG WELL DENIES ANY PAIN AT THIS TIME ON TELEMETRY SST INITIAL ASSESSMENT DONE
[2019-01-25 20:00] VITALS: BP 111/63
--- NOTE | 2019-01-25 21:30 | NUR ---
PT IS ASSISTED TO SPONGE BATH AND VERBALIZED TO FEEL BETTER
[2019-01-26] VITALS: BP 103/59
--- NOTE | 2019-01-26 | NUR ---
PT RESTING ON BED GETTING SLLEP NOT DISTRESS NOTED ON TELEMETRY ST
--- NOTE | 2019-01-26 03:00 | NUR ---
PT HAS BEEN MONITORING CLOSE DENIES ANY PAIN NOT RESP DISTRESS NOTED ON TELEMETRY ST
[2019-01-26 04:00] VITALS: BP 97/60
--- NOTE | 2019-01-26 04:29 | NUR ---
SPONGE BATH GIVEN LINEN CHANGED NOT DISTRESS NOTED ON TELEMETRY ST
[2019-01-26 04:46] LABS: LDH,BODY FLUID 654 U/L
[2019-01-26 04:48] LABS: LDH,BODY FLUID 977 U/L
[2019-01-26] MEDS: PANTOPRAZOLE 40 MG TABEC PO SCH (05:49)
--- NOTE | 2019-01-26 06:36 | NUR ---
PT RESTING ON BED DENIES ANY PAIN AT THIS TIME NOT RESP DISTRESS NOTE AT RA. PT WILL BE ENDORSED TO DAY SHIFT NURSE FOR CONTINUITY OF CARE
[2019-01-26 07:01] LABS: BASOPHILS % (AUTO) 0.5 % (0.0-2.0); EOSINOPHILS # (AUTO) 0.1 K/uL (0-0.4); EOSINOPHILS % (AUTO) 1.2 % (0.0-4.0); HEMATOCRIT 30.6 % (36-48); HEMOGLOBIN 9.4 g/dL (12.0-16.0); MEAN CORPUSCULAR HEMOGLOBIN 23 pg (27-31); MEAN CORPUSCULAR HGB CONC 31 g/dL (33-37); MONOCYTES # (AUTO) 0.5 K/uL (0.8-1.0); MONOCYTES % (AUTO) 5.9 % (1.7-9.3); NEUTROPHILS # (AUTO) 6.7 K/uL (1.8-7.7); NEUTROPHILS % (AUTO) 80.4 % (42.2-75.2); PLATELET COUNT (AUTO) 585 K/uL (140-450); RED BLOOD CELL COUNT(AUTO) 4.02 MIL/uL (4.20-5.40); RED CELL DISTRIBUTION WIDTH 20.4 % (11.6-13.7); WHITE BLOOD COUNT (AUTO) 8.3 K/uL (4.8-10.8)
--- NOTE | 2019-01-26 07:21 | NUR ---
RECEIVED REPORT FROM overnight stocker NURSE. PT IS SITTING UP AT EDGE OF BED. PT IS AAOX4. NO C/O PAIN OR SOB AT THIS TIME. PT ON ROOM AIR. SKIN IS INTACT. IV TO RIGHT FA #22G RUNNING NS @ 10ML/HR. SCD NOT IN USE SINCE PT AMBULATES FREQUENTLY TO THE RESTROOM. DISCUSSED PLAN OF CARE WITH PT, PT VERBALIZED UNDERSTANDING. SAFETY PRECAUTION IN PLACE. CALL LIGHT WITHIN REACH.WILL ROUND FREQUENTLY ON PT.
[2019-01-26 07:24] LABS: ANION GAP 13.4 (8-16); CARBON DIOXIDE 25.4 mmol/L (21-32); CREATININE 0.6 mg/dL (0.6-1.3); POTASSIUM 3.8 mmol/L (3.5-5.1)
[2019-01-26 07:28] LABS: PROTHROMBIN TIME 10.4 secs (10.8-13.4)
[2019-01-26 07:45] LABS: MAGNESIUM 2.1 mg/dL (1.8-2.4); PHOSPHORUS 3.1 mg/dL (2.5-4.9)
[2019-01-26 08:00] VITALS: BP 110/58
[2019-01-26] MEDS: FERROUS SULFATE 325 MG TABEC PO SCH ×3 (08:25→17:50)
[2019-01-26] MEDS: busPIRone 5 MG TAB PO SCH (08:26)
[2019-01-26 08:28] LABS: ALBUMIN,BODY FLUID 3.4 g/dL
[2019-01-26 08:29] LABS: APPEARANCE,SPUN,BODY FLUID HAZY (CLEAR); APPEARANCE,UNSPUN,BODY FLUID HAZY (CLEAR); COLOR,BODY FLUID YELLOW (LT YELLOW)
[2019-01-26 08:30] LABS: SPECIMENTYPE,BODY FLUID THORACENTESIS
--- NOTE | 2019-01-26 08:31 | NUR ---
ADMINISTERED PT MORNING MEDS. PT TOLERATED THEM WELL. PT DENIES PAIN OR SOB AT THIS TIME. WILL ROUND FREQUENTLY ON PT. BED IN LOW POSITION, CALL LIGHT WITHIN REACH.
[2019-01-26] MEDS ORDERED: HYDROCHLOROTHIAZIDE 25 MG TAB PO SCH (09:00)
[2019-01-26 11:11] LABS: SPECIMENTYPE,BODY FLUID PARACENTESIS
[2019-01-26 11:12] LABS: COLOR,BODY FLUID YELLOW (LT YELLOW)
[2019-01-26 11:13] LABS: RBC, BODY FLUID 1130 /cu. mm.; WBC, BODY FLUID 1040 /cu. mm.
[2019-01-26 11:19] LABS: POLYNUCLEAR, BODY FLUID 31 %
[2019-01-26 11:20] LABS: APPEARANCE,SPUN,BODY FLUID HAZY (CLEAR); APPEARANCE,UNSPUN,BODY FLUID HAZY (CLEAR)
--- NOTE | 2019-01-26 11:47 | NUR ---
ADMINISTERED SCHEDULED MEDICATIONS. INSTRUCTED PATIENT ON USE OF INCENTIVE SPIROMETER IN DJ[place]. PATIENT VERBALIZED UNDERSTANDING. DENIES PAIN AT THIS TIME. NO SIGNS OF DISTRESS NOTED. NO OTHER NEEDS AT THIS TIME.
[2019-01-26 11:56] LABS: GLUCOSE,BODY FLUID 128 mg/dL
[2019-01-26 12:00] VITALS: BP 112/55
[2019-01-26 12:29] LABS: ALBUMIN,BODY FLUID 3.3 g/dL
--- NOTE | 2019-01-26 13:10 | NUR ---
PATIENT IS RESTING IN BED. NO DISTRESS NOTED. NO OTHER NEEDS AT THIS TIME. WILL CONTINUE TO MONITOR.
[2019-01-26] MEDS ORDERED: WARF6TAB PO (14:31)
[2019-01-26] MEDS ORDERED: ORE25 PO (14:31)
--- NOTE | 2019-01-26 14:41 | NUR ---
01/26/19 RD INITIAL ASSESSMENT COMPLETED PLEASE REFER TO NUTRITION ASSESSMENT UNDER CARE ACTIVITY FOR ESTIMATED NUTRITIONAL NEEDS. 1. CONTINUE REGULAR DIET TOLERATED 2. HEALTH SHAKE WILL BE ADDED ONCE/DAY BY FNS 3. RD TO FOLLOW-UP 3-5 DAYS, MODERATE RISK KEVIN PATTERSON RD
[2019-01-26] MEDS ORDERED: WARFARIN 5 MG TAB PO SCH ×2 (15:00→17:00)
--- NOTE | 2019-01-26 15:30 | NUR ---
ADMINISTERED SCHEDULED MEDICATIONS. GAVE PATIENT DISCHARGE INSTRUCTIONS, REVIEWED ALL MEDICATIONS, WENT OVER FOLLOW UP INFORMATION. ANSWERED ALL QUESTIONS AND CONCERNS. PATIENT VERBALIZED UNDERSTANDING, STATED HER DAUGHTER WILL PICK HER UP. NO DISTRESS AT THIS TIME. DENIES ANY PAIN. IV WAS DISCONTINUED, CANNULA IS INTACT. MINIMAL BLEEDING AT SITE.
[2019-01-26 16:00] VITALS: BP 112/54
--- NOTE | 2019-01-26 17:50 | NUR ---
ADMINISTERED SCHEDULED MEDICATIONS. DENIES PAIN AT THIS TIME. AWAITING DAUGHTER TO GO HOME.
--- NOTE | 2019-01-26 18:24 | NUR ---
TELEMONITOR WAS REMOVED. ARM BANDS WERE CUT OFF. LAST VS STABLE. PATIENT LEFT UNIT ON WHEEL CHAIR. ALL BELONGINGS LEFT WITH THE PATIENT. NO OTHER QUESTIONS/CONCERNS AT THIS TIME. PATIENT IS STABLE. ACCOMPANIED PATIENT TO LOBBY, DAUGHTER PRESENT TO TAKE PATIENT HOME.
[2019-01-26 18:39] LABS: FERRITIN 97 ng/mL (15 - 150)
--- NOTE | 2019-01-27 14:17 | NUR ---
Supervisor Polishing Note: Per , Supervisor Polishing/Case Management Dept does not have to schedule a follow up appointment. He stated he already scheduled for patient with her FRAME TABLE OPERATOR HELPER, Jayna Petit and attempted to schedule an appointment with Dr. Dewey Parsons, of [facility]. Dr. Osuna stated patient's information was relayed to Julia the office. Follow up appt information is documented on discharge summary. Addendum: 01/27/19 at 1421 by Argentina Bello SS Above note is a late entry for 01/26/19.
== END 2019-01-26 18:27 | disposition home or self-care (01) ==
LOC: MED 14:08 → MTU 17:11
PROVIDERS: ADMIT General Practice; ATTEND General Practice
PROC: 0W993ZZ Drainage of Right Pleural Cavity, Percutaneous Approach (ICD-10-PCS; principal; 2019-01-25)
PROC: 0W9G3ZZ Drainage of Peritoneal Cavity, Percutaneous Approach (ICD-10-PCS; 2019-01-25)
DX: R18.8 Other ascites (principal); J96.00 Acute respiratory failure, unspecified whether with hypoxia or hypercapnia; J90 Pleural effusion, not elsewhere classified; K21.9 Gastro-esophageal reflux disease without esophagitis; D50.9 Iron deficiency anemia, unspecified; F41.9 Anxiety disorder, unspecified; Z86.718 Personal history of other venous thrombosis and embolism; Z79.01 Long term (current) use of anticoagulants; Z79.899 Other long term (current) drug therapy; Z91.19 Patient's noncompliance with other medical treatment and regimen; Z86.711 Personal history of pulmonary embolism
CPT/HCPCS: 36415; 36600; 49083; 71045; 71275; 76604; 76942; 80048; 80053; 80305; 81001; 82150; 82272; 82550; 82607; 82728; 82746; 82803; 82945; 83036; 83540; 83615; 83735; 83880; 84100; 84155; 84157; 84443; 84484; 85025; 85045; 85379; 85610; 86304; 86886; 86900; 86901; 87070; 87075; 87081; 87205; 88104; 88305; 88313; 88342; 89051; 93005; 93971; 99285; J1940; J2001; J2916; J3430; J7030; Q0092; Q9967

== ENCOUNTER 2019-03-26 11:41 | Emergency (ER) | payer MEDICAID ==
[~2019-03-26] VITALS: Ht 154.9 cm; Wt 54.9 kg
[~2019-03-26 11:41] MED LIST changes: +ORE25 PO; -WARF2.5T1 PO; +WARF6TAB PO
[2019-03-26 11:54] VITALS: BP 118/70
[2019-03-26] MEDS ORDERED: NACL 0.9% 1,000 ML IV ONE (12:35)
[2019-03-26] MEDS ORDERED: MORPHINE SULFATE 4 MG/ML SYR IVP ONE (12:35)
[2019-03-26 13:13] LABS: BASOPHILS % (AUTO) 0.6 % (0.0-2.0); EOSINOPHILS # (AUTO) 0.1 K/uL (0-0.4); EOSINOPHILS % (AUTO) 1.1 % (0.0-4.0); HEMATOCRIT 33.3 % (36-48); HEMOGLOBIN 10.2 g/dL (12.0-16.0); LYMPHOCYTES # (AUTO) 1.2 K/uL (2.5-16.5); LYMPHOCYTES % (AUTO) 16.5 % (20.5-51.1); MEAN CORPUSCULAR HEMOGLOBIN 22 pg (27-31); MEAN CORPUSCULAR HGB CONC 31 g/dL (33-37); MEAN CORPUSCULAR VOLUME 72.3 fL (80-94); MONOCYTES # (AUTO) 0.4 K/uL (0.8-1.0); MONOCYTES % (AUTO) 4.9 % (1.7-9.3); NEUTROPHILS # (AUTO) 5.8 K/uL (1.8-7.7); NEUTROPHILS % (AUTO) 76.9 % (42.2-75.2); PLATELET COUNT (AUTO) 474 K/uL (140-450); WHITE BLOOD COUNT (AUTO) 7.5 K/uL (4.8-10.8)
[2019-03-26 13:31] LABS: APPEARANCE,URINE CLOUDY (CLEAR); BILIRUBIN,URINE NEGATIVE (NEGATIVE); BLOOD, URINE 2+ (NEGATIVE); COLOR,URINE YELLOW (YELLOW); LEUKOCYTE ESTERASE ,URINE NEGATIVE (NEGATIVE); NITRITE, URINE NEGATIVE (NEGATIVE); UGLUCOSE NEGATIVE (NEGATIVE)
[2019-03-26 13:47] LABS: RBC,URINE 11-20 (MOD) /HPF (0-5)
[2019-03-26 13:48] LABS: WBC,URINE 0-5 /HPF (0-5)
[2019-03-26 13:49] LABS: URINE AMORPHOUS URATE 4+ /HPF (None Seen)
[2019-03-26 13:51] LABS: ANION GAP 15.8 (8-16); CREATININE 0.8 mg/dL (0.6-1.3); POTASSIUM 3.8 mmol/L (3.5-5.1)
[2019-03-26 13:52] LABS: ALBUMIN 3.8 g/dL (3.4-5.0); TOTAL BILIRUBIN 0.3 mg/dL (0.0-1.0)
[2019-03-26] MEDS ORDERED: DICYCLOMINE HCL LIQUID 20 MG, ALUMINUM HYD/MAG/SIMETHICONE 30 ML, LIDOCAINE VISCOUS 2% ... PO ONE ×3 (16:55)
[2019-03-26 17:12] VITALS: BP 117/57
== END 2019-03-26 17:10 | disposition home or self-care (01) ==
LOC: MED 11:41
DX: R10.9 Unspecified abdominal pain (principal); Z85.43 Personal history of malignant neoplasm of ovary; Z90.710 Acquired absence of both cervix and uterus; Z86.718 Personal history of other venous thrombosis and embolism; Z79.1 Long term (current) use of non-steroidal anti-inflammatories (NSAID); Z79.01 Long term (current) use of anticoagulants; Z79.899 Other long term (current) drug therapy; Z86.79 Personal history of other diseases of the circulatory system
CPT/HCPCS: 36415; 74177; 80053; 81001; 81025; 83690; 85025; 87086; 96360; 96361; 99284; J7030; Q9967; J2270

== ENCOUNTER 2019-04-02 00:30 | Emergency (ER) | payer MEDICAID, OTHER ==
[~2019-04-02] VITALS: Ht 152.4 cm; Wt 55.1 kg
[2019-04-02 00:41] VITALS: BP 134/75
--- NOTE | 2019-04-02 00:57 | NUR ---
PT AMBULATED TO BED 2 WITH STEADY GAIT.
--- NOTE | 2019-04-02 01:10 | NUR ---
PT CAME TO ER C/O OF THROAT BEING IRRITATED, DRY AND BURNING X 1 WEEK. PER PT SHE ALSO FEELS LIKE THERE IS HEAT TRAVELING TO HER CHEST/BACK. PAIN LEVEL 0/10, THROAT PAIN BOTHERS HER WHEN SHE EATS/DRINKS. 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 SAFETY MEASURES IN PLACE. WAITING FOR ERMD TO EVALUATE PT.
[2019-04-02] MEDS ORDERED: ALUMINUM HYD/MAG/SIMETHICONE 30 ML UDC PO ONE (01:35)
[2019-04-02] MEDS ORDERED: LIDOCAINE VISCOUS 2% 20 ML UDC PO ONE (01:35)
--- NOTE | 2019-04-02 01:45 | NUR ---
PT RESTING IN BED, TALKING TO DAUGHTER AT BEDSIDE. VSS. WILL CONTINUE TO MONITOR.
[2019-04-02 02:08] VITALS: BP 134/75
--- NOTE | 2019-04-02 02:08 | NUR ---
Patient discharged BY DR. ENGLAND with v/s stable. Written and verbal after care instructions given and explained. Patient alert, oriented and verbalized understanding of instructions. Ambulatory with steady gait. All questions addressed prior to discharge. ID band removed. Patient advised to follow up with PMD. Rx of PEPCID WAS given. Patient educated on indication of medication including possible reaction and side effects. Opportunity to ask questions provided and answered.
== END 2019-04-02 02:08 | disposition home or self-care (01) ==
LOC: MED 00:30
DX: K20.9 Esophagitis, unspecified (principal); Z86.79 Personal history of other diseases of the circulatory system; Z79.899 Other long term (current) drug therapy
CPT/HCPCS: 99283

== ENCOUNTER 2024-02-27 16:18 | Emergency (ER) | payer OTHER ==
[~2024-02-27] VITALS: Ht 149.9 cm; Wt 63.2 kg
[~2024-02-27 16:18] MED LIST changes: -WARF6TAB PO; +WARF6TAB41 PO
[2024-02-27 16:26] VITALS: BP 134/83; PULSE 86; RESP 16; TEMP 97.4; O2SAT 97
[2024-02-27] MEDS ORDERED: ACET-10509 PO (17:23)
[2024-02-27] MEDS: ACETAMINOPHEN EXTRA STRENGTH 500 MG TAB PO ONE (17:32)
[2024-02-27 17:37] VITALS: BP 134/83; PULSE 86; RESP 16; TEMP 97.4; O2SAT 97
== END 2024-02-27 17:37 | disposition home or self-care (01) ==
LOC: MED 16:18
DX: S00.03XA Contusion of scalp, initial encounter (principal); E11.9 Type 2 diabetes mellitus without complications; E78.5 Hyperlipidemia, unspecified; Z79.899 Other long term (current) drug therapy; Z79.01 Long term (current) use of anticoagulants; W22.8XXA Striking against or struck by other objects, initial encounter; Y92.89 Other specified places as the place of occurrence of the external cause; Y93.89 Activity, other specified; Y99.8 Other external cause status
CPT/HCPCS: 99282